=== PATIENT | female | born 1980 | race African-American/Black ===

== ENCOUNTER 2016-10-28 16:41 | Emergency (ER) | payer OTHER ==
[~2016-10-28] VITALS: Ht 154.9 cm; Wt 71.2 kg
[~2016-10-28 16:41] MED LIST: ALBUTEROL0.09 MG/A1 IH; AMBIEN10 M1 PO; BENADRYL25 MG PO; CLARITIN10 MG PO; FENTANYL; FLONASE NASAL50 MCG NS; FLOVENT HF110 MCG/AC IH; IMITREX100 MG PO; MIDRIN; NORVASC10 MG PO; QVAR HFA M40 MCG/ACT INH; SOMA350 M1 PO; TOPAMAX25 MG PO; XANAX0.25 M1 PO; XANAX0.5 MG PO; XANAX2 MG PO; [UNRECOGNIZED DRUG - OTHER] IH
--- NOTE | 2016-10-28 16:41 | NUR ---
Patient was BIBA at this time.
[2016-10-28 16:43] VITALS: BP 122/78
--- NOTE | 2016-10-28 18:52 | NUR ---
PATIENT LEFT WITHOUT BEING SEEN BY DR. TEJEDA. NO FURTHER CARE PROVIDED FOR PATIENT.
== END 2016-10-28 18:52 | disposition left against medical advice (07) ==
LOC: MED 16:41
DX: R10.11 Right upper quadrant pain (principal); Z53.21 Procedure and treatment not carried out due to patient leaving prior to being seen by health care provider

== ENCOUNTER 2017-10-21 02:40 | Emergency (ER) | payer OTHER ==
[~2017-10-21] VITALS: Ht 154.9 cm; Wt 76.3 kg
[~2017-10-21 02:40] MED LIST changes: +ALBU0.0939 IH; -ALBUTEROL0.09 MG/A1 IH; +ALPR2TAB1 PO; -AMBIEN10 M1 PO; -BENADRYL25 MG PO; -CLARITIN10 MG PO; -FENTANYL; +FLO110 IH; +FLONAS NS; -FLONASE NASAL50 MCG NS; -FLOVENT HF110 MCG/AC IH; -IMITREX100 MG PO; +LORA10TA19 PO; -MIDRIN; -NORVASC10 MG PO; -QVAR HFA M40 MCG/ACT INH; -SOMA350 M1 PO; -TOPAMAX25 MG PO; -XANAX0.25 M1 PO; -XANAX0.5 MG PO; -XANAX2 MG PO; -[UNRECOGNIZED DRUG - OTHER] IH
[2017-10-21 02:46] VITALS: BP 143/104
[2017-10-21] MEDS ORDERED: ONDANSETRON 4 MG/2 ML VIAL IVP ONE (02:55)
[2017-10-21] MEDS ORDERED: NACL 0.9% 1,000 ML IV SCH (02:55)
[2017-10-21] MEDS ORDERED: diphenhydrAMINE 50 MG/ML VIAL IVP ONE (02:55)
--- NOTE | 2017-10-21 02:55 | NUR ---
PATIENT AMBULATED TO BED 1
--- NOTE | 2017-10-21 02:56 | NUR ---
PATIENT PRESENTS TO ED WITH RIGHT FLANK PAIN X1 DAY. PT DENIES N/V/D; SKIN IS PINK/WARM/DRY; AAOX4 WITH EVEN AND STEADY GAIT; LUNGS CLEAR BL; HR EVEN AND REGULAR; PT DENIES ANY FEVER, CP, SOB, OR COUGH AT THIS TIME; PATIENT STATES PAIN OF 10/10 AT THIS TIME; VSS; PATIENT POSITIONED FOR COMFORT; HOB ELEVATED; BEDRAILS UP X2; BED DOWN. ER MD MADE AWARE OF PT STATUS.
--- NOTE | 2017-10-21 03:00 | NUR ---
DR PERKINS EVALUATING PATIENT
--- NOTE | 2017-10-21 03:10 | NUR ---
DR. PERKINS DISCONTINUED MEDICATIONS. DR IN TO SEE PATIENT
[2017-10-21 03:22] LABS: BASOPHILS # (AUTO) 0.1 K/uL (0.00-0.22); EOSINOPHILS # (AUTO) 0.1 K/uL (0-0.4); EOSINOPHILS % (AUTO) 1.6 % (0.0-4.0); HEMATOCRIT 29.5 % (36-48); HEMOGLOBIN 9.4 g/dL (12.0-16.0); LYMPHOCYTES # (AUTO) 2.5 K/uL (2.5-16.5); MEAN CORPUSCULAR HEMOGLOBIN 22 pg (27-31); MEAN CORPUSCULAR HGB CONC 32 g/dL (33-37); MEAN CORPUSCULAR VOLUME 68.9 fL (80-94); MONOCYTES # (AUTO) 0.5 K/uL (0.8-1.0); NEUTROPHILS # (AUTO) 3.3 K/uL (1.8-7.7); NEUTROPHILS % (AUTO) 50.4 % (42.2-75.2); PLATELET COUNT (AUTO) 348 K/uL (140-450); RED BLOOD CELL COUNT(AUTO) 4.28 MIL/uL (4.20-5.40); RED CELL DISTRIBUTION WIDTH 22.5 % (11.6-13.7); WHITE BLOOD COUNT (AUTO) 6.4 K/uL (4.8-10.8)
[2017-10-21 03:24] LABS: APPEARANCE,URINE SL CLOUDY (CLEAR); BILIRUBIN,URINE NEGATIVE (NEGATIVE); BLOOD, URINE 3+ (NEGATIVE); COLOR,URINE YELLOW (YELLOW); LEUKOCYTE ESTERASE ,URINE TRACE (NEGATIVE); NITRITE, URINE NEGATIVE (NEGATIVE); UGLUCOSE NEGATIVE (NEGATIVE)
[2017-10-21 03:29] LABS: BARBITURATE, URINE NEG. ng/ml (NEG <=200); BENZODIAZEPINE, URINE POS. ng/mL (NEG <=200); CANNABINOID, URINE NEG. ng/mL (NEG <=50); COCAINE, URINE NEG. ng/mL (NEG <=300); OPIATE, URINE NEG. ng/mL (NEG <=2000); PHENCYCLIDINE SCREEN,URINE NEG. ng/mL (NEG <=25)
[2017-10-21 03:30] VITALS: BP 143/104
--- NOTE | 2017-10-21 03:30 | NUR ---
PATIENT REFUSED TO SIGN DISCHARGE INSTUCTIONS, LEFT WITHOUT INSTRUCTIONS
[2017-10-21 03:35] LABS: ANION GAP 13.3 (8-16); CARBON DIOXIDE 25.8 mmol/L (21-32); CREATININE 0.7 mg/dL (0.6-1.3); POTASSIUM 3.1 mmol/L (3.5-5.1)
[2017-10-21 03:40] LABS: ALBUMIN 3.6 g/dL (3.4-5.0); TOTAL BILIRUBIN 0.2 mg/dL (0.0-1.0)
[2017-10-21 03:49] LABS: RBC,URINE 0-5 (RARE) /HPF (0-5); WBC,URINE 0-5 (RARE) /HPF (0-5)
== END 2017-10-21 03:30 | disposition home or self-care (01) ==
LOC: MED 02:40
DX: F11.20 Opioid dependence, uncomplicated (principal); J45.909 Unspecified asthma, uncomplicated; I10 Essential (primary) hypertension; R51 Headache; Z79.899 Other long term (current) drug therapy; Z88.5 Allergy status to narcotic agent; Z88.8 Allergy status to other drugs, medicaments and biological substances; Z90.710 Acquired absence of both cervix and uterus; Z87.442 Personal history of urinary calculi
CPT/HCPCS: 36415; 80053; 80305; 81001; 81025; 83690; 85025; 99284

== ENCOUNTER 2017-12-09 01:14 | Emergency (ER) | payer OTHER ==
[~2017-12-09] VITALS: Ht 154.9 cm; Wt 73.9 kg
[2017-12-09 01:16] VITALS: BP 127/85
--- NOTE | 2017-12-09 01:19 | NUR ---
TO LOBBY, A/W BED, OLIVIA, CAITLYN. ERMNiki NOTED
[2017-12-09 01:21] VITALS: BP 127/85
--- NOTE | 2017-12-09 02:14 | NUR ---
PT AMBULATED TO ER BED 2
[2017-12-09] MEDS ORDERED: LORazepam 2 MG/ML VIAL IM STA (02:26)
--- NOTE | 2017-12-09 02:30 | NUR ---
PT REFUSED ATIVAN AND TYLENOL. RATIONAL EXPLAINED TO RESON FOR MEDICATIONS AND DIAGNOSTIC TESTING. PT CONTINUED TO REFUSE.
[2017-12-09] MEDS ORDERED: ACETAMINOPHEN 325 MG TAB PO ONE (02:35)
--- NOTE | 2017-12-09 02:35 | NUR ---
PT REFUSED CT SCANNING UNTIL OTHER MEDICATIONS WERE OFFERED. DR PERKINS NOTIFIED OF MEDICATION AND DIAGNOSTIC REFUSAL.
--- NOTE | 2017-12-09 02:50 | NUR ---
DR PERKINS AT BEDSIDE WITH PT. PT CONTINUES TO REFUSE ALL CARE OFFERED.
--- NOTE | 2017-12-09 03:00 | NUR ---
PT LEFT WITHOUT RECIEVING OR SIGNING DISCHARGE PAPERWORK. VSS. DR PERKINS NOTIFIED.
[2017-12-09 03:08] LABS: APPEARANCE,URINE SL CLOUDY (CLEAR); BILIRUBIN,URINE NEGATIVE (NEGATIVE); BLOOD, URINE 3+ (NEGATIVE); COLOR,URINE YELLOW (YELLOW); LEUKOCYTE ESTERASE ,URINE 1+ (NEGATIVE); NITRITE, URINE NEGATIVE (NEGATIVE); PH,URINE 6.5 (5.0-9.0); UGLUCOSE NEGATIVE (NEGATIVE)
[2017-12-09 03:14] LABS: BARBITURATE, URINE NEG. ng/ml (NEG <=200); BENZODIAZEPINE, URINE POS. ng/mL (NEG <=200); CANNABINOID, URINE NEG. ng/mL (NEG <=50); COCAINE, URINE NEG. ng/mL (NEG <=300); OPIATE, URINE NEG. ng/mL (NEG <=2000); PHENCYCLIDINE SCREEN,URINE NEG. ng/mL (NEG <=25)
[2017-12-09 03:35] LABS: RBC,URINE TOO NUMEROUS TO COUN /HPF (0-5)
== END 2017-12-09 03:00 | disposition left against medical advice (07) ==
LOC: MED 01:14
DX: R10.9 Unspecified abdominal pain (principal); J45.909 Unspecified asthma, uncomplicated; F41.9 Anxiety disorder, unspecified; I10 Essential (primary) hypertension; Z79.899 Other long term (current) drug therapy; Z88.5 Allergy status to narcotic agent; Z88.8 Allergy status to other drugs, medicaments and biological substances; Z90.89 Acquired absence of other organs
CPT/HCPCS: 80305; 81001; 87086; 93005; 99285; J2060

== ENCOUNTER 2019-01-24 05:52 | Emergency (ER) | payer OTHER ==
[~2019-01-24] VITALS: Ht 154.9 cm; Wt 74.8 kg
[2019-01-24 06:04] VITALS: BP 144/94
--- NOTE | 2019-01-24 06:04 | NUR ---
PT TAKEN TO BED 4
--- NOTE | 2019-01-24 06:05 | NUR ---
38 Y/O F PRESENTED TO ED WITH C/O ABDOMINAL PAIN X 2 DAYS. WORSENING TODAY. 10 PAIN, SHARP. PER PT "I HAVE HAD KIDNEY STONES FOR A YEAR." PT SEEN IN ER X1 WEEK AND PRESCRIBED NORCO AND PER PT "RAN OUT OF IT THIS MORNING". PAIN LOCATED ON R FLANK RADIATING TO L LOWER ABDOMEN. FLANK TENDERNESS TO R FLANK. +HEMATURIA AND NAUSEA. PT PLACED IN GOWN. ERMD NOTIFIED. WILL CONTINUE TO MONITOR.
[2019-01-24 07:01] LABS: APPEARANCE,URINE CLOUDY (CLEAR); BILIRUBIN,URINE NEGATIVE (NEGATIVE); BLOOD, URINE 3+ (NEGATIVE); COLOR,URINE YELLOW (YELLOW); LEUKOCYTE ESTERASE ,URINE 2+ (NEGATIVE); NITRITE, URINE NEGATIVE (NEGATIVE); PH,URINE 6.5 (5.0-9.0); UGLUCOSE NEGATIVE (NEGATIVE)
--- NOTE | 2019-01-24 07:15 | NUR ---
REPORT GIVEN TO RUTHIE DELA CRUZ. TRANSFER OF CARE AT THIS TIME.
[2019-01-24] MEDS ORDERED: NALBUPHINE 10 MG/ML AMP IM SCH (07:30)
[2019-01-24] MEDS ORDERED: PROMETHAZINE 25 MG/ML VIAL IM ONE (07:30)
[2019-01-24 07:52] LABS: RBC,URINE TOO NUMEROUS TO COUN /HPF (0-5)
[2019-01-24 07:57] LABS: BARBITURATE, URINE NEG. ng/ml (NEG <=200); BENZODIAZEPINE, URINE POS. ng/mL (NEG <=200); CANNABINOID, URINE NEG. ng/mL (NEG <=50); COCAINE, URINE NEG. ng/mL (NEG <=300); OPIATE, URINE POS. ng/mL (NEG <=2000); PHENCYCLIDINE SCREEN,URINE NEG. ng/mL (NEG <=25)
[2019-01-24 08:16] VITALS: BP 118/82
--- NOTE | 2019-01-24 08:17 | NUR ---
Patient discharged with v/s stable. Written and verbal after care instructions given and explained. Patient verbalized understanding. Ambulatory with steady gait. All questions addressed prior to discharge. Advised to follow up with PMD.
== END 2019-01-24 08:15 | disposition home or self-care (01) ==
LOC: MED 05:52
DX: N23 Unspecified renal colic (principal); I10 Essential (primary) hypertension; J45.909 Unspecified asthma, uncomplicated; Z88.5 Allergy status to narcotic agent; Z88.6 Allergy status to analgesic agent; Z79.899 Other long term (current) drug therapy; Z79.891 Long term (current) use of opiate analgesic; Z87.448 Personal history of other diseases of urinary system; Z90.89 Acquired absence of other organs; Z90.49 Acquired absence of other specified parts of digestive tract; Z90.710 Acquired absence of both cervix and uterus
CPT/HCPCS: 80305; 81001; 81025; 87086; 96372; 99283; J2300; J2550

== ENCOUNTER 2019-02-05 23:08 | Emergency (ER) | payer OTHER ==
[~2019-02-05] VITALS: Ht 160 cm; Wt 77.1 kg
[2019-02-05 23:08] VITALS: BP 146/98
--- NOTE | 2019-02-05 23:16 | NUR ---
BIBA TO ER BED 2 Addendum: 02/05/19 at 2320 by MEDDM TO ER BED 1
--- NOTE | 2019-02-05 23:20 | NUR ---
BIBA FOR LEFT FLANK PAIN. PT RATES PAIN 10/10. PT RECEIVED BREATHING TX IN THE FIELD AND 50MCG OF FENTANYL. PT ON ROOM AIR AT THIS TIME, NO S/S OF DISTRESS/ SOB AT THIS TIME. PATIENT PLACED ON MONITOR. VITAL SIGNS WITHIN NORMAL LIMITS. BED LOWERED WITH SIDE RAILS UP. HX: KIDNEY STONES, ASTHMA, APPY, YENNY
[2019-02-05 23:52] VITALS: BP 147/94
[2019-02-06 00:02] LABS: APPEARANCE,URINE CLOUDY (CLEAR); BILIRUBIN,URINE NEGATIVE (NEGATIVE); BLOOD, URINE 3+ (NEGATIVE); LEUKOCYTE ESTERASE ,URINE TRACE (NEGATIVE); NITRITE, URINE NEGATIVE (NEGATIVE); PH,URINE 6.5 (5.0-9.0); UGLUCOSE NEGATIVE (NEGATIVE)
[2019-02-06] MEDS ORDERED: HYDROcodone/APAP 5/325 MG 1 TAB TAB PO ONE (00:05)
--- NOTE | 2019-02-06 00:10 | NUR ---
PT TAKEN TO CT
--- NOTE | 2019-02-06 00:13 | NUR ---
PT IS REFUSING TO GO TO CT AND TO TAKE PAIN MEDICATION THAT WAS ORDERED FOR HER. ER MD MADE AWARE.
--- NOTE | 2019-02-06 00:17 | NUR ---
PATIENT ELOPED FROM FACILITY. DISCHARGE INSTRUCTIONS NOT GIVEN TO PATIENT. DR. NAYAK NOTIFIED.
[2019-02-06 00:19] LABS: COLOR,URINE SLIGHT BLOODY (YELLOW)
[2019-02-06 00:20] LABS: RBC,URINE TOO NUMEROUS TO COUN /HPF (0-5); WBC,URINE 0-5 /HPF (0-5)
== END 2019-02-06 00:17 | disposition left against medical advice (07) ==
LOC: MED 23:08
DX: R10.9 Unspecified abdominal pain (principal); R11.0 Nausea; R31.9 Hematuria, unspecified; J45.909 Unspecified asthma, uncomplicated; I10 Essential (primary) hypertension; F41.9 Anxiety disorder, unspecified; Z90.49 Acquired absence of other specified parts of digestive tract; Z87.442 Personal history of urinary calculi; Z79.899 Other long term (current) drug therapy; Z88.6 Allergy status to analgesic agent; Z88.5 Allergy status to narcotic agent; Z88.8 Allergy status to other drugs, medicaments and biological substances
CPT/HCPCS: 81001; 81025; 99283

== ENCOUNTER 2019-03-08 17:51 | Emergency (ER) | payer OTHER ==
[~2019-03-08] VITALS: Ht 154.9 cm; Wt 78.0 kg
[2019-03-08 18:16] VITALS: BP 136/93
--- NOTE | 2019-03-08 21:25 | NUR ---
PT TAKEN TO BED 04 BY WHEELCHAIR.
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
[2019-03-08] MEDS ORDERED: ONDANSETRON 4 MG ODT PO ONE (22:05)
[2019-03-08] MEDS ORDERED: MORPHINE SULFATE 4 MG/ML SYR IM ONE (22:05)
--- NOTE | 2019-03-08 23:10 | NUR ---
PT SPLINT RE-WRAPPED WITH NEW CARMELLA WRAPS PER PT REQUEST. +CSM
[2019-03-08 23:25] VITALS: BP 128/86
--- NOTE | 2019-03-08 23:25 | NUR ---
Patient discharged with v/s stable. Written and verbal after care instructions given and explained. Patient alert, oriented and verbalized understanding of instructions. Ambulatory with steady gait. All questions addressed prior to discharge. ID band removed. Patient advised to follow up with PMD. Rx of ZOFRAN 8MG, FLOMAX 0.4 MG, NORCO 5/325 MG given. Patient educated on indication of medication including possible reaction and side effects. Opportunity to ask questions provided and answered.
== END 2019-03-08 23:25 | disposition home or self-care (01) ==
LOC: MED 17:51
DX: S93.401A Sprain of unspecified ligament of right ankle, initial encounter (principal); R10.31 Right lower quadrant pain; R11.0 Nausea; I10 Essential (primary) hypertension; J45.909 Unspecified asthma, uncomplicated; F41.9 Anxiety disorder, unspecified; Z90.49 Acquired absence of other specified parts of digestive tract; Z98.890 Other specified postprocedural states; Z90.710 Acquired absence of both cervix and uterus; Z79.899 Other long term (current) drug therapy; Z88.6 Allergy status to analgesic agent; Z88.5 Allergy status to narcotic agent; Z88.8 Allergy status to other drugs, medicaments and biological substances; W19.XXXA Unspecified fall, initial encounter; Y93.89 Activity, other specified; Y92.89 Other specified places as the place of occurrence of the external cause; Y99.8 Other external cause status
CPT/HCPCS: 73610; 81002; 81025; 96372; 99283; J2270; Q0162

== ENCOUNTER 2019-03-31 23:03 | Emergency (ER) | payer OTHER ==
[~2019-03-31] VITALS: Ht 154.9 cm; Wt 73.5 kg
--- NOTE | 2019-03-31 23:04 | NUR ---
PT TRANSFERED FROM [facility] TO BED 7.
[2019-03-31 23:08] VITALS: BP 148/95
--- NOTE | 2019-03-31 23:16 | NUR ---
PT C/O RT ANKLE PAIN AND SWELLING S/P FALLING OFF CURB AND TWISTING ANKLE ON 03/04/19. PT STATES SHE HEARD A CRACK. PT CANNOT PUT PRESSURE ON RT ANKLE. HAS BEEN TAKING TYLENOL FOR PAIN SINCE FALL, NO RELIEF. TOOK TYLENOL AT 0800 TODAY. +CMS. 04/19 PAIN. PT IN BED CALM, GRIMICING IN PAIN. ALLERGIES: ASPIRIN, IBURPROFEN, REGLAN, COMPAZINE, TORADOL W/ CODEINE, PENICILLIN, DEMEROL MEDHX: ANXIETY, ASTHMA
--- NOTE | 2019-03-31 23:18 | NUR ---
XRAY AT BEDSIDE
--- NOTE | 2019-03-31 23:23 | NUR ---
Dr. Sullivan examining patient.
[2019-03-31] MEDS ORDERED: traMADol 50 MG TAB PO ONE (23:30)
--- NOTE | 2019-03-31 23:33 | NUR ---
PT REFUSED TRAMADOL. STATES SHE IS ALLERGIC AND HER THROAT WILL SWELL. DR ALLEN MADE AWARE
--- NOTE | 2019-04-01 00:09 | NUR ---
Dr. Sullivan with patient.
--- NOTE | 2019-04-01 00:14 | NUR ---
PT REFUSED TO TAKE D/C PAPERWORK AND REFUSES TO SIGN , PT AMBULATORY W/ HER OWN WALKING BOOT TO JEREMIE KERN. PT REFUSES BUS PASS.
== END 2019-04-01 00:14 | disposition home or self-care (01) ==
LOC: MED 23:03
DX: S93.401A Sprain of unspecified ligament of right ankle, initial encounter (principal); J45.909 Unspecified asthma, uncomplicated; I10 Essential (primary) hypertension; F41.9 Anxiety disorder, unspecified; Z90.49 Acquired absence of other specified parts of digestive tract; Z90.710 Acquired absence of both cervix and uterus; Z79.899 Other long term (current) drug therapy; Z79.51 Long term (current) use of inhaled steroids; Z88.6 Allergy status to analgesic agent; Z88.5 Allergy status to narcotic agent; Z88.8 Allergy status to other drugs, medicaments and biological substances; X50.1XXA Overexertion from prolonged static or awkward postures, initial encounter; Y93.89 Activity, other specified; Y92.89 Other specified places as the place of occurrence of the external cause; Y99.8 Other external cause status
CPT/HCPCS: 73610; 99283; Q0092

== ENCOUNTER 2019-04-25 18:24 | Emergency (ER) | payer OTHER ==
[~2019-04-25] VITALS: Ht 154.9 cm; Wt 77.1 kg
[2019-04-25 19:00] VITALS: BP 132/94
[2019-04-25] MEDS ORDERED: MORPHINE SULFATE 4 MG/ML SYR IVP ONE (19:25)
[2019-04-25] MEDS ORDERED: NACL 0.9% 1,000 ML IV ONE (19:25)
[2019-04-25] MEDS ORDERED: ONDANSETRON 4 MG/2 ML VIAL IVP ONE (19:25)
[2019-04-25 19:55] LABS: BASOPHILS # (AUTO) 0.2 K/uL (0.00-0.22); BASOPHILS % (AUTO) 2.6 % (0.0-2.0); EOSINOPHILS # (AUTO) 0.4 K/uL (0-0.4); EOSINOPHILS % (AUTO) 5.7 % (0.0-4.0); HEMATOCRIT 31.7 % (36-48); LYMPHOCYTES % (AUTO) 30.4 % (20.5-51.1); MEAN CORPUSCULAR HEMOGLOBIN 25 pg (27-31); MEAN CORPUSCULAR HGB CONC 32 g/dL (33-37); MEAN CORPUSCULAR VOLUME 77.8 fL (80-94); MONOCYTES # (AUTO) 0.7 K/uL (0.8-1.0); MONOCYTES % (AUTO) 10.8 % (1.7-9.3); NEUTROPHILS # (AUTO) 3.3 K/uL (1.8-7.7); NEUTROPHILS % (AUTO) 50.5 % (42.2-75.2); PLATELET COUNT (AUTO) 356 K/uL (140-450); RED BLOOD CELL COUNT(AUTO) 4.07 MIL/uL (4.20-5.40); RED CELL DISTRIBUTION WIDTH 20.7 % (11.6-13.7); WHITE BLOOD COUNT (AUTO) 6.6 K/uL (4.8-10.8)
[2019-04-25 20:27] LABS: ANION GAP 12.8 (8-16); CARBON DIOXIDE 26.4 mmol/L (21-32); CREATININE 0.7 mg/dL (0.6-1.3); POTASSIUM 3.2 mmol/L (3.5-5.1)
[2019-04-25 20:32] LABS: APPEARANCE,URINE HAZY (CLEAR); BILIRUBIN,URINE NEGATIVE (NEGATIVE); BLOOD, URINE 3+ (NEGATIVE); COLOR,URINE YELLOW (YELLOW); LEUKOCYTE ESTERASE ,URINE TRACE (NEGATIVE); NITRITE, URINE NEGATIVE (NEGATIVE); UGLUCOSE NEGATIVE (NEGATIVE)
[2019-04-25 20:34] LABS: ALBUMIN 3.6 g/dL (3.4-5.0); TOTAL BILIRUBIN 0.2 mg/dL (0.0-1.0)
[2019-04-25] MEDS ORDERED: ONDANSETRON 4 MG ODT PO ONE (20:55)
[2019-04-25 20:56] LABS: RBC,URINE 0-5 /HPF (0-5)
[2019-04-25 20:57] LABS: WBC,URINE 0-5 /HPF (0-5)
[2019-04-25] MEDS ORDERED: MORPHINE SULFATE 4 MG/ML SYR IM ONE ×2 (21:50→23:10)
[2019-04-25] MEDS ORDERED: LORazepam 1 MG TAB PO ONE (23:10)
[2019-04-26 00:19] VITALS: BP 123/88
== END 2019-04-26 00:18 | disposition home or self-care (01) ==
LOC: MED 18:24
DX: N20.0 Calculus of kidney (principal); R31.9 Hematuria, unspecified; G89.29 Other chronic pain; J45.909 Unspecified asthma, uncomplicated; I10 Essential (primary) hypertension; Z79.899 Other long term (current) drug therapy; Z88.6 Allergy status to analgesic agent; Z88.5 Allergy status to narcotic agent; Z88.8 Allergy status to other drugs, medicaments and biological substances
CPT/HCPCS: 36415; 74176; 80053; 81001; 81025; 85025; 96372; 99284; J2270; Q0162; J2405

== ENCOUNTER 2019-05-31 16:18 | Emergency (ER) | payer OTHER ==
[~2019-05-31] VITALS: Ht 154.9 cm; Wt 79.8 kg
[2019-05-31 16:26] VITALS: BP 129/90
--- NOTE | 2019-05-31 16:45 | NUR ---
PT W/C ASSISTED TO BED 8.
--- NOTE | 2019-05-31 17:00 | NUR ---
C/O ABD PAIN 10/10 X3 DAYS ACCOMPANIED BY N/V. PT STATES SHE THINKS SHE HAS KIDNEY STONES AGAIN. HX: KIDNEY STONES, ASTHMA, PANIC ATTACKS RX: SKIN IS PINK/WARM/DRY; AAOX4 WITH EVEN AND STEADY GAIT; LUNGS CLEAR BL; HR EVEN AND REGULAR; PT DENIES ANY FEVER, CP, SOB, OR COUGH AT THIS TIME; PATIENT STATES PAIN OF 10/10 AT THIS TIME; VSS; PATIENT POSITIONED FOR COMFORT; HOB ELEVATED; BEDRAILS UP X2; BED DOWN. ER MD MADE AWARE OF PT STATUS.
[2019-05-31] MEDS ORDERED: MORPHINE SULFATE 4 MG/ML SYR IM ONE ×2 (17:05→18:20)
[2019-05-31] MEDS ORDERED: LORazepam 1 MG TAB PO ONE (17:05)
[2019-05-31] MEDS ORDERED: ONDANSETRON 4 MG ODT PO ONE (17:05)
[2019-05-31 17:23] LABS: BASOPHILS # (AUTO) 0.1 K/uL (0.00-0.22); BASOPHILS % (AUTO) 1.3 % (0.0-2.0); EOSINOPHILS # (AUTO) 0.5 K/uL (0-0.4); HEMATOCRIT 33.6 % (36-48); HEMOGLOBIN 10.8 g/dL (12.0-16.0); LYMPHOCYTES # (AUTO) 1.6 K/uL (2.5-16.5); LYMPHOCYTES % (AUTO) 31.2 % (20.5-51.1); MEAN CORPUSCULAR HEMOGLOBIN 25 pg (27-31); MEAN CORPUSCULAR HGB CONC 32 g/dL (33-37); MEAN CORPUSCULAR VOLUME 78.1 fL (80-94); MONOCYTES # (AUTO) 0.5 K/uL (0.8-1.0); MONOCYTES % (AUTO) 8.7 % (1.7-9.3); NEUTROPHILS # (AUTO) 2.6 K/uL (1.8-7.7); NEUTROPHILS % (AUTO) 48.8 % (42.2-75.2); PLATELET COUNT (AUTO) 325 K/uL (140-450); WHITE BLOOD COUNT (AUTO) 5.3 K/uL (4.8-10.8)
--- NOTE | 2019-05-31 17:30 | NUR ---
NO IV NEEDED PER
[2019-05-31 17:44] LABS: ANION GAP 12.1 (8-16); CARBON DIOXIDE 27.2 mmol/L (21-32); CREATININE 0.7 mg/dL (0.6-1.3); POTASSIUM 3.3 mmol/L (3.5-5.1)
[2019-05-31 17:49] LABS: ALBUMIN 3.6 g/dL (3.4-5.0); TOTAL BILIRUBIN 0.2 mg/dL (0.0-1.0)
--- NOTE | 2019-05-31 18:00 | NUR ---
NOTIFIED DR. JARVIS PT C/O PAIN.
--- NOTE | 2019-05-31 18:30 | NUR ---
PT STATES "I DON'T WANT TO SEE THAT DOCTOR AGAIN. HE IS GIVING ME THE SAME MEDICATION THAT IS NOT WORKING." PT REQUESTING TO SPEAK TO DR. JARVIS. DR. JARVIS AT BEDSIDE SPEAKING WITH PATIENT.
--- NOTE | 2019-05-31 18:43 | NUR ---
DR. JARVIS AT BEDSIDE TO RE-ASSESS PT. DISCHARGE PAPER OFFERED TO PT, PT STATED SHE WILL NOT SIGN D/C PAPER DUE TO DRMaximilian DID NOT DO ANYTHING.
--- NOTE | 2019-05-31 18:52 | NUR ---
Pt ambulated out of facility with steady gait. Pt refused to sign discharge instructions. Pt refused to have US or provide UA.
== END 2019-05-31 18:52 | disposition home or self-care (01) ==
LOC: MED 16:18
DX: M54.9 Dorsalgia, unspecified (principal); G89.29 Other chronic pain; J45.909 Unspecified asthma, uncomplicated; I10 Essential (primary) hypertension; Z79.899 Other long term (current) drug therapy; Z79.51 Long term (current) use of inhaled steroids; Z88.6 Allergy status to analgesic agent; Z88.5 Allergy status to narcotic agent; Z88.8 Allergy status to other drugs, medicaments and biological substances
CPT/HCPCS: 36415; 80053; 81002; 81025; 83690; 85025; 96372; 99283; J2270; Q0162

== ENCOUNTER 2019-06-24 15:25 | Emergency (ER) | payer OTHER ==
[~2019-06-24] VITALS: Ht 154.9 cm; Wt 78.0 kg
[2019-06-24 15:35] VITALS: BP 146/66
--- NOTE | 2019-06-24 15:36 | NUR ---
TO LOBBY A/W BED AMBULATORY
--- NOTE | 2019-06-24 16:14 | NUR ---
PT AMB TO RESTROOM WITH STEADY GAIT
--- NOTE | 2019-06-24 16:15 | NUR ---
PT WENT TO RESTROOM AMBULATING FOR URINE COLLECTION.
[2019-06-24 16:36] LABS: APPEARANCE,URINE SL CLOUDY (CLEAR); BILIRUBIN,URINE NEGATIVE (NEGATIVE); BLOOD, URINE 3+ (NEGATIVE); COLOR,URINE YELLOW (YELLOW); LEUKOCYTE ESTERASE ,URINE 1+ (NEGATIVE); NITRITE, URINE NEGATIVE (NEGATIVE); UGLUCOSE NEGATIVE (NEGATIVE)
--- NOTE | 2019-06-24 16:37 | NUR ---
PT MOVED TO BED 8
[2019-06-24 16:45] LABS: RBC,URINE >20 (MANY) /HPF (0-5)
[2019-06-24 16:55] LABS: BARBITURATE, URINE NEG. ng/ml (NEG <=200); BENZODIAZEPINE, URINE POS. ng/mL (NEG <=200); CANNABINOID, URINE NEG. ng/mL (NEG <=50); COCAINE, URINE NEG. ng/mL (NEG <=300); OPIATE, URINE NEG. ng/mL (NEG <=2000); PHENCYCLIDINE SCREEN,URINE NEG. ng/mL (NEG <=25)
[2019-06-24] MEDS ORDERED: HYDROcodone/APAP 5/325 MG 1 TAB TAB PO ONE (17:25)
[2019-06-24] MEDS ORDERED: cefTRIAXone 1,000 MG VIAL ONE (17:34)
[2019-06-24] MEDS ORDERED: DEXTROSE 5% 0 ML IV ONE (17:34)
--- NOTE | 2019-06-24 17:41 | NUR ---
PT REFUSING MEDS AT THIS TIME.
--- NOTE | 2019-06-24 17:49 | NUR ---
SPOKE WITH PT, INFORMED PT OF PLAN OF CARE. PT STATES "I WANT SOMETHING STRONGER THAN NORCO AND I DONT WANT TO BE POKED FOR NO ANTIBIOTIC" EDUCATED PATIENT THAT NORLALY AND ANTIBIOTICS WERE DR WOLF PLAN OF CARE. PT REFUSING ALL MEDICATIONS, LAB DRAWS, AND IV INSERTION DESPITE EDUCATION.
[2019-06-24 17:51] VITALS: BP 146/66
--- NOTE | 2019-06-24 17:51 | NUR ---
Patient does not wish to proceed with medical care recommended by DR SEGUNOD. Patient given information related to possible complications, up to and including , which could occur as a result of leaving hospital at this time. Patient verbalizes understanding of risks involved leaving against medical advice. Patient has signed AMA form.
== END 2019-06-24 17:51 | disposition left against medical advice (07) ==
LOC: MED 15:25
DX: Z53.21 Procedure and treatment not carried out due to patient leaving prior to being seen by health care provider (principal); M54.9 Dorsalgia, unspecified; R10.9 Unspecified abdominal pain
CPT/HCPCS: 80305; 81001; 87086; 99283; J0696; J7060

== ENCOUNTER 2019-07-25 12:31 | Emergency (ER) | payer OTHER ==
[~2019-07-25] VITALS: Ht 154.9 cm; Wt 73.9 kg
[2019-07-25 12:38] VITALS: BP 131/86
[2019-07-25] MEDS: HYDROmorphone PFS 2 MG/ML SYR IM ONE ×2 (13:37→14:35)
[2019-07-25] MEDS: ONDANSETRON 4 MG/2 ML VIAL IM ONE (13:41)
[2019-07-25 14:39] LABS: BASOPHILS # (AUTO) 0.1 K/uL (0.00-0.22); BASOPHILS % (AUTO) 1.5 % (0.0-2.0); EOSINOPHILS # (AUTO) 0.3 K/uL (0-0.4); HEMATOCRIT 32.9 % (36-48); HEMOGLOBIN 10.4 g/dL (12.0-16.0); LYMPHOCYTES # (AUTO) 1.8 K/uL (2.5-16.5); MEAN CORPUSCULAR HEMOGLOBIN 25 pg (27-31); MEAN CORPUSCULAR HGB CONC 32 g/dL (33-37); MEAN CORPUSCULAR VOLUME 78.1 fL (80-94); MONOCYTES # (AUTO) 0.8 K/uL (0.8-1.0); MONOCYTES % (AUTO) 11.4 % (1.7-9.3); NEUTROPHILS # (AUTO) 3.8 K/uL (1.8-7.7); NEUTROPHILS % (AUTO) 56.1 % (42.2-75.2); PLATELET COUNT (AUTO) 366 K/uL (140-450); RED BLOOD CELL COUNT(AUTO) 4.21 MIL/uL (4.20-5.40); RED CELL DISTRIBUTION WIDTH 19.7 % (11.6-13.7); WHITE BLOOD COUNT (AUTO) 6.8 K/uL (4.8-10.8)
[2019-07-25 14:58] LABS: ANION GAP 13.4 (8-16); CREATININE 0.7 mg/dL (0.6-1.3); POTASSIUM 3.4 mmol/L (3.5-5.1)
[2019-07-25 15:02] LABS: ALBUMIN 3.1 g/dL (3.4-5.0); TOTAL BILIRUBIN 0.1 mg/dL (0.0-1.0)
[2019-07-25 15:19] VITALS: BP 106/63
[2019-07-25 16:08] LABS: APPEARANCE,URINE CLEAR (CLEAR); BILIRUBIN,URINE NEGATIVE (NEGATIVE); BLOOD, URINE 3+ (NEGATIVE); COLOR,URINE YELLOW (YELLOW); LEUKOCYTE ESTERASE ,URINE 1+ (NEGATIVE); NITRITE, URINE NEGATIVE (NEGATIVE); PH,URINE 6.5 (5.0-9.0); UGLUCOSE NEGATIVE (NEGATIVE)
[2019-07-25 16:11] LABS: RBC,URINE 11-20 (MOD) /HPF (0-5)
== END 2019-07-25 15:19 | disposition home or self-care (01) ==
LOC: MED 12:31
DX: R10.9 Unspecified abdominal pain (principal); R05 Cough; J45.909 Unspecified asthma, uncomplicated; I10 Essential (primary) hypertension; Z79.899 Other long term (current) drug therapy; Z87.442 Personal history of urinary calculi; Z88.5 Allergy status to narcotic agent; Z88.6 Allergy status to analgesic agent; Z88.8 Allergy status to other drugs, medicaments and biological substances
CPT/HCPCS: 36415; 80053; 81001; 82150; 83690; 84703; 85025; 87086; 96372; 99283; J1170; J2405

== ENCOUNTER 2019-07-25 18:22 | Emergency (ER) | payer OTHER ==
[~2019-07-25] VITALS: Ht 162.6 cm; Wt 68.0 kg
[2019-07-25 18:25] VITALS: BP 143/87
--- NOTE | 2019-07-25 20:10 | NUR ---
ASSESSMENT COMPLETE. PATIENT SITTING UP IN CHAIR. BIB SELF WITH REPORTS OF BEING DGX WITH KIDNEY STONES HERE EARLIER TODAY. STATES SHE IS STILL HAS BILATERAL LOWER BACK PAIN. WHEN ASKED WHY SHE IS HERE TODAY SHE STATES "SHE IS JUST WAITING FOR HER RIDE". DENIES NVD, SOB, FEVER. PATIENT LUNGS CLEAR, ABD SOFT AND NON-TENDER.
--- NOTE | 2019-07-25 20:10 | NUR ---
PT AMBULATED TO [facility].
[2019-07-25 20:19] LABS: BARBITURATE, URINE NEG. ng/ml (NEG <=200); BENZODIAZEPINE, URINE POS. ng/mL (NEG <=200); CANNABINOID, URINE NEG. ng/mL (NEG <=50); COCAINE, URINE NEG. ng/mL (NEG <=300); OPIATE, URINE POS. ng/mL (NEG <=2000); PHENCYCLIDINE SCREEN,URINE NEG. ng/mL (NEG <=25)
[2019-07-25 20:44] VITALS: BP 110/95
== END 2019-07-25 20:45 | disposition home or self-care (01) ==
LOC: MED 18:22
DX: R10.9 Unspecified abdominal pain (principal); J45.909 Unspecified asthma, uncomplicated; I10 Essential (primary) hypertension; Z79.899 Other long term (current) drug therapy; Z88.6 Allergy status to analgesic agent; Z88.5 Allergy status to narcotic agent; Z88.8 Allergy status to other drugs, medicaments and biological substances
CPT/HCPCS: 80305; 99283

== ENCOUNTER 2019-07-29 23:08 | Emergency (ER) | payer OTHER ==
[~2019-07-29] VITALS: Ht 154.9 cm; Wt 74.4 kg
[2019-07-29 23:15] VITALS: BP 139/93
--- NOTE | 2019-07-29 23:18 | NUR ---
TO LOBBY A/W BED AMBULATORY
--- NOTE | 2019-07-30 00:22 | NUR ---
39 YEAR OLD FEMALE COMPLAINS OF BILATERAL FLANK PAIN 9/10 PAIN X 3 DAYS. PATIENT DENIES N/V/D. PATIENT STATES THAT SOMETIMES SHE SEES SOME BLOOD SPOTS IN URINE. PATIENT AOX4, BREATHING EVEN AND UNLABORED, SKIN WARM AND DRY. BED IN LOWEST POSITION, LOCKED, BED RAIL UPX1. PMH - ASTHMA, APPENDECTOMY, REMOVE GALLBLADER, HYSTERECTOMY ALLERGIES - ASA, NSAIDS, TORADOL, REGLAN
[2019-07-30 00:27] LABS: APPEARANCE,URINE SL CLOUDY (CLEAR); BILIRUBIN,URINE NEGATIVE (NEGATIVE); BLOOD, URINE 3+ (NEGATIVE); COLOR,URINE YELLOW (YELLOW); LEUKOCYTE ESTERASE ,URINE 1+ (NEGATIVE); NITRITE, URINE NEGATIVE (NEGATIVE); UGLUCOSE NEGATIVE (NEGATIVE)
--- NOTE | 2019-07-30 00:33 | NUR ---
DR. SEGUNDO BEDSIDE EVALUATING PT
--- NOTE | 2019-07-30 00:49 | NUR ---
PT ELOPEDN 0048
--- NOTE | 2019-07-30 00:49 | NUR ---
PATIENT ELOPED FROM FACILITY. DISCHARGE INSTRUCTIONS NOT GIVEN TO PATIENT. DR. SEGUNDO NOTIFIED.
[2019-07-30 00:51] LABS: RBC,URINE TOO NUMEROUS TO COUN /HPF (0-5)
== END 2019-07-30 00:49 | disposition left against medical advice (07) ==
LOC: MED 23:08
DX: Z76.5 Malingerer [conscious simulation] (principal); R10.84 Generalized abdominal pain; J45.909 Unspecified asthma, uncomplicated; I10 Essential (primary) hypertension; Z90.710 Acquired absence of both cervix and uterus; Z88.6 Allergy status to analgesic agent; Z88.5 Allergy status to narcotic agent; Z88.8 Allergy status to other drugs, medicaments and biological substances
CPT/HCPCS: 81001; 87086; 99283

== ENCOUNTER 2019-09-07 20:15 | Emergency (ER) | payer OTHER ==
[~2019-09-07] VITALS: Ht 154.9 cm; Wt 80.0 kg
[2019-09-07 20:26] VITALS: BP 98/78
--- NOTE | 2019-09-07 21:17 | NUR ---
C/O SHARP LT FLANK PAIN X YESTERDAY. + HEMATURIA, + FREQUENCY, + NAUSEA. PT STATES "FEELS LIKE KIDNEY STONES". PAIN IS A 9/10 LOWER ABODMINAL FLANK PAIN TO THE LOWER BACK PAIN. PATIENT STATES "I'VE NOTICED BLOOD IN MY URINE AND IT HAS BEEN BURNING WHEN I PEE". SLIGHT TENDERNESS UPON PALPATION IN THE LOWER BACK. DENIES NAUSEA; VOMITING. ERMD MADE AWARE OF STATUS. SIDE RAILSX1. WILL CONTINUE TO MONITOR. PMH:KIDNEY STONES, HTN, CHRONIC SINISITUS, CHOLECYSTECTOMY, APPENDECTOMY, HYSTERECTOMY
--- NOTE | 2019-09-07 21:17 | NUR ---
PT AMBULATED TO BED 9
[2019-09-07] MEDS ORDERED: HYDROcodone/APAP 5/325 MG 1 TAB TAB PO ONE (23:40)
[2019-09-07 23:45] VITALS: BP 100/78
--- NOTE | 2019-09-07 23:45 | NUR ---
Patient discharged with v/s stable. Written and verbal after care instructions given and explained. Patient verbalized understanding. Ambulatory with steady gait. All questions addressed prior to discharge. Advised to follow up with PMD. pt left with signing paperwork, ermd made aware
--- NOTE | 2019-09-07 23:52 | NUR ---
Herminio mackenzie in ED - 09/08/19 at 0002 by [place] PATIENT ELOPED FROM FACILITY. DISCHARGE INSTRUCTIONS NOT GIVEN TO PATIENT. DR. JENKINS NOTIFIED.
== END 2019-09-07 23:45 | disposition home or self-care (01) ==
LOC: MED 20:15
DX: N20.0 Calculus of kidney (principal); J45.909 Unspecified asthma, uncomplicated; I10 Essential (primary) hypertension; Z79.899 Other long term (current) drug therapy; Z98.890 Other specified postprocedural states; Z90.49 Acquired absence of other specified parts of digestive tract; Z88.1 Allergy status to other antibiotic agents; Z88.5 Allergy status to narcotic agent; Z88.6 Allergy status to analgesic agent; Z88.8 Allergy status to other drugs, medicaments and biological substances
CPT/HCPCS: 81002; 81025; 99283

== ENCOUNTER 2019-09-28 09:20 | Emergency (ER) | payer OTHER ==
[~2019-09-28] VITALS: Ht 154.9 cm; Wt 80.3 kg
[2019-09-28 09:26] VITALS: BP 135/96
--- NOTE | 2019-09-28 09:30 | NUR ---
PT AMBULATED TO BED 07, GIVEN CUP FOR URINE COLLECTION.
--- NOTE | 2019-09-28 09:40 | NUR ---
PT C/O OF LEFT ABDOMINAL PAIN X 2 DAYS ACCOMPANIED BY FEELING OF NAUSEA ,SELF MEDICATED WITH TYLENOL AND NORCO WITH NO RELIEF, PAIN AT 9/10 PT AWAKE , ALERT, AFIBRILE , AMBULATORY WITH STEADY GAIT.FLAT SOFT NABS , NONTENDER. PMHX ASTMA , HTN , KIDNEY STONES. MEDS HTN MEDS AND INHALER.
--- NOTE | 2019-09-28 09:48 | NUR ---
Dr. Sullivan is evaluating the patient at bedside.
[2019-09-28] MEDS ORDERED: ONDANSETRON 4 MG/2 ML VIAL IVP ONE (09:50)
[2019-09-28] MEDS ORDERED: fentaNYL 0.05 MG/ML VIAL IVP ONE (09:50)
[2019-09-28] MEDS ORDERED: NACL 0.9% 500 ML IV ONE (09:50)
[2019-09-28] MEDS ORDERED: ONDANSETRON 4 MG ODT PO ONE (10:05)
[2019-09-28] MEDS ORDERED: fentaNYL 0.05 MG/ML VIAL IM ONE ×2 (10:05→11:05)
--- NOTE | 2019-09-28 10:08 | NUR ---
LABS AT BEDSIDE , ASK RN PEPE FOR CANNULATION AND DR ALLEN INFORMED PT IS HARD STICK.
[2019-09-28 10:23] LABS: APPEARANCE,URINE SL CLOUDY (CLEAR); BILIRUBIN,URINE NEGATIVE (NEGATIVE); BLOOD, URINE 3+ (NEGATIVE); COLOR,URINE YELLOW (YELLOW); LEUKOCYTE ESTERASE ,URINE TRACE (NEGATIVE); NITRITE, URINE NEGATIVE (NEGATIVE); PH,URINE 7.5 (5.0-9.0); UGLUCOSE NEGATIVE (NEGATIVE)
[2019-09-28 10:23] LABS: BASOPHILS # (AUTO) 0.1 K/uL (0.00-0.22); BASOPHILS % (AUTO) 1.2 % (0.0-2.0); EOSINOPHILS # (AUTO) 0.8 K/uL (0-0.4); EOSINOPHILS % (AUTO) 10.6 % (0.0-4.0); HEMATOCRIT 33.1 % (36-48); HEMOGLOBIN 10.6 g/dL (12.0-16.0); LYMPHOCYTES # (AUTO) 2.1 K/uL (2.5-16.5); LYMPHOCYTES % (AUTO) 28.4 % (20.5-51.1); MEAN CORPUSCULAR HEMOGLOBIN 25 pg (27-31); MEAN CORPUSCULAR HGB CONC 32 g/dL (33-37); MEAN CORPUSCULAR VOLUME 77.2 fL (80-94); MONOCYTES # (AUTO) 0.5 K/uL (0.8-1.0); MONOCYTES % (AUTO) 7.2 % (1.7-9.3); NEUTROPHILS # (AUTO) 3.9 K/uL (1.8-7.7); NEUTROPHILS % (AUTO) 52.6 % (42.2-75.2); PLATELET COUNT (AUTO) 377 K/uL (140-450); RED BLOOD CELL COUNT(AUTO) 4.29 MIL/uL (4.20-5.40); RED CELL DISTRIBUTION WIDTH 18.6 % (11.6-13.7); WHITE BLOOD COUNT (AUTO) 7.4 K/uL (4.8-10.8)
--- NOTE | 2019-09-28 10:26 | NUR ---
WASTED FENTANYL HALF DOSE WITH RN PEPE.
[2019-09-28 10:39] LABS: RBC,URINE >100 /HPF (0-5); WBC,URINE 16-25 (MOD) /HPF (0-5)
--- NOTE | 2019-09-28 10:39 | NUR ---
Patient taken to CT scan via gurney by [employer].
--- NOTE | 2019-09-28 10:40 | NUR ---
pt to ct csan via gurney.awake , alert , afibrile.
--- NOTE | 2019-09-28 10:48 | NUR ---
pt back from ct scan via [facility].
[2019-09-28 10:51] LABS: ALBUMIN 3.3 g/dL (3.4-5.0); ANION GAP 11.6 (8-16); CARBON DIOXIDE 28.8 mmol/L (21-32); CREATININE 0.8 mg/dL (0.6-1.3); POTASSIUM 3.4 mmol/L (3.5-5.1); TOTAL BILIRUBIN 0.1 mg/dL (0.0-1.0)
[2019-09-28] MEDS ORDERED: diphenhydrAMINE 50 MG/ML VIAL IM ONE (10:55)
--- NOTE | 2019-09-28 11:00 | NUR ---
INFORMED DR ALLEN REGARDING PATIENT CONCERN ABOUT PAIN MEDS SHE WANTS.
--- NOTE | 2019-09-28 11:22 | NUR ---
DR ALLEN AT BEDSIDE REEVALUATING PATIENT.
[2019-09-28] MEDS ORDERED: MORPHINE SULFATE 2 MG/ML SYR IM ONE (11:25)
--- NOTE | 2019-09-28 11:49 | NUR ---
DR ALLEN AT BEDSIDE REEVALUATING PT AND BOTH EARS EXAMINE. EXPLAIN TO PATIENT NO INFECTION IN BOTH EARS .
--- NOTE | 2019-09-28 11:54 | NUR ---
Patient discharged with v/s stable. Written and verbal after care instructions given and explained regarding kidney stones. Patient alert, oriented and verbalized understanding of instructions. Ambulatory with steady gait. All questions addressed prior to discharge. ID band removed. Patient advised to follow up with PMD. Rx of norco and zofran given. Patient educated on indication of medication including possible reaction and side effects. Opportunity to ask questions provided and answered.
[2019-09-28 11:58] VITALS: BP 135/90
== END 2019-09-28 11:54 | disposition home or self-care (01) ==
LOC: MED 09:20
DX: N20.0 Calculus of kidney (principal); J45.909 Unspecified asthma, uncomplicated; I10 Essential (primary) hypertension; Z90.49 Acquired absence of other specified parts of digestive tract; Z87.442 Personal history of urinary calculi; Z79.899 Other long term (current) drug therapy; Z88.6 Allergy status to analgesic agent; Z88.5 Allergy status to narcotic agent; Z88.8 Allergy status to other drugs, medicaments and biological substances
CPT/HCPCS: 36415; 74176; 80053; 81001; 81025; 85025; 96372; 99284; J1200; J2270; J3010; Q0162

== ENCOUNTER 2019-10-22 06:14 | Emergency (ER) | payer OTHER ==
[~2019-10-22] VITALS: Ht 154.9 cm; Wt 81.6 kg
[2019-10-22 06:19] VITALS: BP 115/84
[2019-10-22 06:56] LABS: APPEARANCE,URINE CLEAR (CLEAR); BILIRUBIN,URINE NEGATIVE (NEGATIVE); BLOOD, URINE 3+ (NEGATIVE); COLOR,URINE YELLOW (YELLOW); LEUKOCYTE ESTERASE ,URINE 1+ (NEGATIVE); NITRITE, URINE NEGATIVE (NEGATIVE); PH,URINE 6.5 (5.0-9.0); UGLUCOSE NEGATIVE (NEGATIVE)
[2019-10-22 07:05] LABS: BARBITURATE, URINE NEGATIVE ng/ml (NEG <=200); BENZODIAZEPINE, URINE POSITIVE ng/mL (NEG <=200); CANNABINOID, URINE NEGATIVE ng/mL (NEG <=50); COCAINE, URINE NEGATIVE ng/mL (NEG <=300); OPIATE, URINE POSITIVE ng/mL (NEG <=2000); PHENCYCLIDINE SCREEN,URINE NEGATIVE ng/mL (NEG <=25)
[2019-10-22 07:21] LABS: RBC,URINE 20-50 /HPF (0-5)
== END 2019-10-22 07:31 | disposition home or self-care (01) ==
LOC: MED 06:14
DX: N23 Unspecified renal colic (principal); J45.909 Unspecified asthma, uncomplicated; I10 Essential (primary) hypertension; G43.909 Migraine, unspecified, not intractable, without status migrainosus; Z87.442 Personal history of urinary calculi; Z90.49 Acquired absence of other specified parts of digestive tract; Z88.5 Allergy status to narcotic agent; Z88.6 Allergy status to analgesic agent; Z88.8 Allergy status to other drugs, medicaments and biological substances
CPT/HCPCS: 80305; 81001; 81025; 87086; 99283

== ENCOUNTER 2019-11-05 23:55 | Emergency (ER) | payer OTHER ==
[~2019-11-05] VITALS: Ht 154.9 cm; Wt 77.1 kg
[2019-11-05 23:59] VITALS: BP 111/87
[2019-11-06] MEDS ORDERED: ACETAMINOPHEN 325 MG TAB PO ONE (00:15)
[2019-11-06 00:20] VITALS: BP 111/87
--- NOTE | 2019-11-06 00:20 | NUR ---
PATIENT LEFT WITHOUT BEING SEEN BY DR. amador. NO FURTHER CARE PROVIDED FOR PATIENT.
--- NOTE | 2019-11-06 00:20 | NUR ---
PATIENT LEFT WITHOUT BEING SEEN BY DR. SEGUNDO. NO FURTHER CARE PROVIDED FOR PATIENT.
== END 2019-11-06 00:20 | disposition left against medical advice (07) ==
LOC: MED 23:55
DX: R10.9 Unspecified abdominal pain (principal); I10 Essential (primary) hypertension; J45.909 Unspecified asthma, uncomplicated; Z90.49 Acquired absence of other specified parts of digestive tract; Z88.6 Allergy status to analgesic agent; Z88.5 Allergy status to narcotic agent; Z91.09 Other allergy status, other than to drugs and biological substances; Z98.890 Other specified postprocedural states; Z79.899 Other long term (current) drug therapy

== ENCOUNTER 2019-11-22 01:00 | Emergency (ER) | payer OTHER ==
[~2019-11-22] VITALS: Ht 162.6 cm; Wt 79.4 kg
[2019-11-22 01:02] VITALS: BP 115/71
[2019-11-22] MEDS ORDERED: MORPHINE SULFATE 4 MG/ML SYR IM ONE (01:25)
[2019-11-22 01:43] VITALS: BP 115/71
== END 2019-11-22 01:43 | disposition home or self-care (01) ==
LOC: MED 01:00
DX: M79.10 Myalgia, unspecified site (principal); I10 Essential (primary) hypertension; J45.909 Unspecified asthma, uncomplicated; Z88.6 Allergy status to analgesic agent; Z88.5 Allergy status to narcotic agent; Z88.8 Allergy status to other drugs, medicaments and biological substances; Z88.9 Allergy status to unspecified drugs, medicaments and biological substances; Z79.899 Other long term (current) drug therapy; V49.88XA Car occupant (driver) (passenger) injured in other specified transport accidents, initial encounter; Y93.89 Activity, other specified; Y92.89 Other specified places as the place of occurrence of the external cause; Y99.8 Other external cause status
CPT/HCPCS: 96372; 99283; J2270

== ENCOUNTER 2019-12-01 00:47 | Emergency (ER) | payer OTHER ==
[~2019-12-01] VITALS: Ht 154.9 cm; Wt 80.7 kg
[2019-12-01 01:04] VITALS: BP 125/96
[2019-12-01] MEDS ORDERED: MORPHINE SULFATE 4 MG/ML SYR IM ONE (01:15)
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
[2019-12-01 01:32] VITALS: BP 115/62
--- NOTE | 2019-12-01 01:33 | NUR ---
Patient discharged with v/s stable. Written and verbal after care instructions given and explained. Patient alert, oriented and verbalized understanding of instructions. Ambulatory with steady gait. All questions addressed prior to discharge. ID band removed. Patient advised to follow up with PMD. Opportunity to ask questions provided and answered.
== END 2019-12-01 01:33 | disposition home or self-care (01) ==
LOC: MED 00:47
DX: G89.29 Other chronic pain (principal); M25.562 Pain in left knee; J45.909 Unspecified asthma, uncomplicated; I10 Essential (primary) hypertension; Z79.899 Other long term (current) drug therapy; Z88.5 Allergy status to narcotic agent; Z88.6 Allergy status to analgesic agent; Z88.8 Allergy status to other drugs, medicaments and biological substances
CPT/HCPCS: 29505; 96372; 99283; J2270

== ENCOUNTER 2019-12-22 16:48 | Emergency (ER) | payer OTHER ==
[~2019-12-22] VITALS: Ht 154.9 cm; Wt 82.1 kg
[2019-12-22 16:51] VITALS: BP 133/86
--- NOTE | 2019-12-22 17:00 | NUR ---
C/O 10/ PAIN TO BILAT FLANK AREA X2 DAYS ACCOMPANIED BY NAUSEA. PT DENIES FEVER/VOMITING/DIARRHEA. PT STATES SHE ALSO HAS INTERMITTENT PAIN RADIATING DOWN HER LLE. ABDOMEN SOFT/FLAT AND TENDER TO PALPATION. BOWEL SOUNDS PRESENT X4. PT GUARDING HER ABDOMEN AND TEARFUL. PT PLACED IN GOWN. BED IN LOW POSITION, SIDE RAIL UP X1.
--- NOTE | 2019-12-22 17:10 | NUR ---
DR. TEJEDA EVALUATING PT AT BEDSIDE
[2019-12-22] MEDS ORDERED: ONDANSETRON 4 MG/2 ML VIAL IVP ONE (17:25)
[2019-12-22] MEDS ORDERED: MORPHINE SULFATE 4 MG/ML SYR IVP ONE ×2 (17:25→18:35)
[2019-12-22] MEDS ORDERED: NACL 0.9% 1,000 ML IV ONE (17:25)
--- NOTE | 2019-12-22 17:45 | NUR ---
PT RQ BENADRYL WITH MORPHINE DUE TO IT "MAKING HER ITCHY". DR. TEJEDA NOTIFIED
[2019-12-22] MEDS ORDERED: diphenhydrAMINE 50 MG/ML VIAL IVP ONE ×2 (17:55→18:50)
--- NOTE | 2019-12-22 18:00 | NUR ---
PT CONTINUES TO C/O PAIN, 04/19. STATES THE PREVIOUS DOSE OF MORPHINE DID NOT PROVIDE ANY RELIEF. DR. TEJEDA NOTIFIED.
[2019-12-22] MEDS ORDERED: ONDANSETRON 4 MG/2 ML VIAL ONE (18:02)
[2019-12-22 18:16] LABS: APPEARANCE,URINE CLOUDY (CLEAR); BILIRUBIN,URINE NEGATIVE (NEGATIVE); BLOOD, URINE 3+ (NEGATIVE); COLOR,URINE YELLOW (YELLOW); LEUKOCYTE ESTERASE ,URINE 2+ (NEGATIVE); NITRITE, URINE NEGATIVE (NEGATIVE); UGLUCOSE NEGATIVE (NEGATIVE)
[2019-12-22 18:23] LABS: ALBUMIN 3.6 g/dL (3.4-5.0); ANION GAP 12.8 (8-16); CARBON DIOXIDE 25.7 mmol/L (21-32); CREATININE 0.8 mg/dL (0.6-1.3); POTASSIUM 3.5 mmol/L (3.5-5.1); TOTAL BILIRUBIN 0.2 mg/dL (0.0-1.0)
[2019-12-22] MEDS ORDERED: fentaNYL 0.05 MG/ML VIAL IVP ONE (18:25)
[2019-12-22 18:27] LABS: RBC,URINE 20-50 /HPF (0-5)
[2019-12-22 18:37] LABS: BASOPHILS % (AUTO) 0.4 % (0.0-2.0); EOSINOPHILS # (AUTO) 0.4 K/uL (0-0.4); EOSINOPHILS % (AUTO) 6.6 % (0.0-4.0); HEMATOCRIT 29.5 % (36-48); HEMOGLOBIN 9.5 g/dL (12.0-16.0); LYMPHOCYTES # (AUTO) 1.1 K/uL (2.5-16.5); LYMPHOCYTES % (AUTO) 17.5 % (20.5-51.1); MEAN CORPUSCULAR HEMOGLOBIN 25 pg (27-31); MEAN CORPUSCULAR HGB CONC 32 g/dL (33-37); MEAN CORPUSCULAR VOLUME 77.5 fL (80-94); MONOCYTES # (AUTO) 0.4 K/uL (0.8-1.0); MONOCYTES % (AUTO) 5.8 % (1.7-9.3); NEUTROPHILS # (AUTO) 4.4 K/uL (1.8-7.7); NEUTROPHILS % (AUTO) 69.7 % (42.2-75.2); PLATELET COUNT (AUTO) 271 K/uL (140-450); RED BLOOD CELL COUNT(AUTO) 3.81 MIL/uL (4.20-5.40); RED CELL DISTRIBUTION WIDTH 19.6 % (11.6-13.7); WHITE BLOOD COUNT (AUTO) 6.3 K/uL (4.8-10.8)
--- NOTE | 2019-12-22 18:38 | NUR ---
PT REFUSED FENTANYL, STATED "IM ALLERGIC, IT WILL MAKE ME BREAK OUT". DR. TEJEDA NOTIFIED. WASTED SYRINGE OF 75MCG FENTANYL WITH RUTHIE MENDOZA & DOCUMENTED IN [facility].
--- NOTE | 2019-12-22 18:47 | NUR ---
ADMINISTERED MORPHINE ORDERED, PT REQUESTING MORE BENADRYL. DR TEJEDA NOTIFIED.
--- NOTE | 2019-12-22 19:00 | NUR ---
administered benadryl as ordered
--- NOTE | 2019-12-22 19:06 | NUR ---
Patient discharged with v/s stable. Written and verbal after care instructions given and explained. Patient alert, oriented and verbalized understanding of instructions. Ambulatory with steady gait. All questions addressed prior to discharge. ID band removed. Patient advised to follow up with PMD. Rx of norco, cipro, flomax, and zofran given. Patient educated on indication of medication including possible reaction and side effects. Opportunity to ask questions provided and answered. pt friend is driving her home.
[2019-12-22 19:07] VITALS: BP 117/80
== END 2019-12-22 19:06 | disposition home or self-care (01) ==
LOC: MED 16:48
DX: N39.0 Urinary tract infection, site not specified (principal); J45.909 Unspecified asthma, uncomplicated; I10 Essential (primary) hypertension; Z79.899 Other long term (current) drug therapy; Z88.2 Allergy status to sulfonamides; Z88.5 Allergy status to narcotic agent; Z88.8 Allergy status to other drugs, medicaments and biological substances; Z90.49 Acquired absence of other specified parts of digestive tract
CPT/HCPCS: 36415; 76770; 80053; 81001; 81025; 83690; 85025; 87086; 96374; 96375; 96376; 99284; J1200; J2270; J2405; J3010; J7030; Q0092

== ENCOUNTER 2019-12-28 15:57 | Emergency (ER) | payer OTHER ==
[~2019-12-28] VITALS: Ht 154.9 cm; Wt 81.6 kg
[2019-12-28 16:05] VITALS: BP 124/79
[2019-12-28] MEDS ORDERED: ONDANSETRON 4 MG ODT PO ONE (16:55)
[2019-12-28 17:19] VITALS: BP 124/79
== END 2019-12-28 17:00 | disposition left against medical advice (07) ==
LOC: MED 15:57
DX: R10.9 Unspecified abdominal pain (principal); I10 Essential (primary) hypertension; J45.909 Unspecified asthma, uncomplicated; Z88.8 Allergy status to other drugs, medicaments and biological substances; Z88.6 Allergy status to analgesic agent; Z90.711 Acquired absence of uterus with remaining cervical stump; Z91.018 Allergy to other foods; Z79.899 Other long term (current) drug therapy; Z90.49 Acquired absence of other specified parts of digestive tract
CPT/HCPCS: 81002; 99281

== ENCOUNTER 2020-01-01 03:09 | Emergency (ER) | payer OTHER ==
[~2020-01-01] VITALS: Ht 154.9 cm; Wt 81.6 kg
[2020-01-01 03:10] VITALS: BP 107/86
--- NOTE | 2020-01-01 03:23 | NUR ---
PT AMBULATED TO BED 7 WITH STEADY GAIT
--- NOTE | 2020-01-01 03:33 | NUR ---
39F PRESENTS TO ED WITH C/O LEFT SIDED FLANK PAIN X 4 DAYS THAT IS INTERMITTENT; PAIN 10/10; PT TOOK NORCO 5 PRIOR TO ER VISIT WITH NO RELIEF 2 HOURS AGO; PRIOR TO [facility] ER VISIT PT WAS AT [facility] AND LEFT. NEURO WNL. RR EVEN AND UNLABORED. CBL SOUNDS. ABDOMEN SOFT AND NON TENDER. BOWEL SOUNDS NORMOACTIVE BOWEL SOUNDS ON ALL QUADRANTS. PMH:HYSTERECTOMY 2010/HTN/ANXIETY/ASTHMA/DEPRESSION/BIPOLAR/KIDNEY STONE ALLERGY: NSAIDS/ASA/CODEINE/IBUPROFEN/TORADOL/REGLAN/COMPAZINE
--- NOTE | 2020-01-01 03:35 | NUR ---
Dr. Sullivan examining patient.
[2020-01-01] MEDS ORDERED: NACL 0.9% 500 ML IV ONE (03:37)
[2020-01-01] MEDS ORDERED: MORPHINE SULFATE 2 MG/ML SYR IVP ONE ×2 (03:40→04:45)
[2020-01-01] MEDS ORDERED: ONDANSETRON 4 MG/2 ML VIAL IVP ONE (03:40)
[2020-01-01] MEDS ORDERED: diphenhydrAMINE 50 MG/ML VIAL IVP ONE ×2 (03:40→04:45)
--- NOTE | 2020-01-01 03:54 | NUR ---
PT TAKEN TO CT
[2020-01-01 04:01] LABS: APPEARANCE,URINE CLOUDY (CLEAR); BILIRUBIN,URINE NEGATIVE (NEGATIVE); BLOOD, URINE 3+ (NEGATIVE); COLOR,URINE DARK YELLOW (YELLOW); LEUKOCYTE ESTERASE ,URINE 3+ (NEGATIVE); NITRITE, URINE NEGATIVE (NEGATIVE); PH,URINE 6.5 (5.0-9.0); UGLUCOSE NEGATIVE (NEGATIVE)
--- NOTE | 2020-01-01 04:05 | NUR ---
PT RETURN FROM CT
[2020-01-01 04:12] LABS: RBC,URINE >100 /HPF (0-5); WBC,URINE 80-100 /HPF (0-5)
[2020-01-01 04:13] LABS: HYALINE CASTS, URINE 0-10 /LPF (None Seen)
--- NOTE | 2020-01-01 04:50 | NUR ---
PT MEDICATED WITH MORPHINE AND BENADRYL. TOLERATED WELL. ZEINAR
== END 2020-01-01 06:00 | disposition home or self-care (01) ==
LOC: MED 03:09
DX: N20.0 Calculus of kidney (principal); J45.909 Unspecified asthma, uncomplicated; I10 Essential (primary) hypertension; Z87.442 Personal history of urinary calculi; Z79.899 Other long term (current) drug therapy; Z88.6 Allergy status to analgesic agent; Z88.8 Allergy status to other drugs, medicaments and biological substances; Z88.5 Allergy status to narcotic agent
CPT/HCPCS: 74176; 81001; 87086; 96374; 96375; 96376; 99284; J1200; J2270; J2405; J7030

== ENCOUNTER 2020-01-02 04:57 | Emergency (ER) | payer OTHER ==
[~2020-01-02] VITALS: Ht 154.9 cm; Wt 81.6 kg
[2020-01-02 05:04] VITALS: BP 121/78
--- NOTE | 2020-01-02 05:05 | NUR ---
TRIAGE COMPLETE. IN LOBBY AWATING BED IN ED.
--- NOTE | 2020-01-02 05:07 | NUR ---
PT IS PERSISTANTLY ASKING WHICH ATTENDING IS ON DUTY. EDUCATED PT THAT DOCTORS ROTATE FREQUENTLY AND SHE WOULD BE SEEN SOON POSSIBLE.
--- NOTE | 2020-01-02 06:13 | NUR ---
PT IS REFUSING ULTRASOUND BECAUSE SHE HAS NOT BEEN PLACED INTO AN ED BED AND BEEN SEEN BY A DOCTOR. STATES "I DONT LIKE HOW IM BEING TREATED AND TALKED TO" EDUCATED PATIENT THAT SHE IS IN THE LOBBY AWAITING BED IN THE ED AND REFUSING THE ULTRASOUND WOULD DELAY HER CARE. PT STATES "I DONT CARE ILL WAIT"
--- NOTE | 2020-01-02 06:40 | NUR ---
TO ED 12, AMBULATORY
--- NOTE | 2020-01-02 06:45 | NUR ---
39 YEAR OLD FEMALE COMPLAINS OF LEFT FLANK PAIN X 1 WEEK. PT STATES THAT SHE HAS BLOOD IN URINE. PT DENIES ANY OTHER COMPLAINTS. PT STATES ORDERED NORCO FOR PREVIOUS VISIT NOT WORKING FOR PAIN. PT AOX4, BREATHING EVEN AND UNLABORED, SKIN WARM AND DRY. BED IN LOWEST POSITION, LOCKED, BED RAIL UPX1. PMH - ASTHMA, HTN, KIDNEY STONES, PANIC ATTACK
--- NOTE | 2020-01-02 07:09 | NUR ---
PT ALERT AND AWAKE, BREATHING EVEN AND UNLABORED
--- NOTE | 2020-01-02 07:13 | NUR ---
REPORT GIVEN TO CYNTHIA HENDRICKS, TRANSFER OF CARE AT THIS TIME
[2020-01-02] MEDS ORDERED: NACL 0.9% 1,000 ML IV ONE (07:20)
[2020-01-02] MEDS ORDERED: ONDANSETRON 4 MG/2 ML VIAL IVP ONE (07:20)
[2020-01-02] MEDS ORDERED: MORPHINE SULFATE 4 MG/ML SYR IVP ONE (07:20)
--- NOTE | 2020-01-02 07:21 | NUR ---
Pt report received from RUTHIE Donnelly. Transfer of care at this time.
[2020-01-02] MEDS ORDERED: diphenhydrAMINE 50 MG/ML VIAL IVP ONE (07:30)
--- NOTE | 2020-01-02 08:24 | NUR ---
PT IS RESTING IN THE BED. 1L BOLUS IS RUNNING VIA IV 24 G ON THE RT FOOT.
[2020-01-02 08:57] LABS: APPEARANCE,URINE SL CLOUDY (CLEAR); BILIRUBIN,URINE NEGATIVE (NEGATIVE); BLOOD, URINE 3+ (NEGATIVE); COLOR,URINE YELLOW (YELLOW); NITRITE, URINE POSITIVE (NEGATIVE); PH,URINE 6.5 (5.0-9.0); UGLUCOSE NEGATIVE (NEGATIVE)
[2020-01-02 09:06] VITALS: BP 118/75
[2020-01-02 09:22] LABS: LEUKOCYTE ESTERASE ,URINE 1+ (NEGATIVE)
[2020-01-02 09:23] LABS: YEAST,URINE Few /HPF (None Seen)
[2020-01-02 09:26] LABS: WBC,URINE 0-5 /HPF (0-5)
== END 2020-01-02 09:05 | disposition home or self-care (01) ==
LOC: MED 04:57
DX: N20.0 Calculus of kidney (principal); F41.0 Panic disorder [episodic paroxysmal anxiety]; G89.29 Other chronic pain; I10 Essential (primary) hypertension; J45.909 Unspecified asthma, uncomplicated; N28.9 Disorder of kidney and ureter, unspecified; Z88.6 Allergy status to analgesic agent; Z88.8 Allergy status to other drugs, medicaments and biological substances; Z79.899 Other long term (current) drug therapy
CPT/HCPCS: 81001; 87086; 96374; 96375; 99284; J1200; J2270; J2405; J7030

== ENCOUNTER 2020-01-13 05:24 | Emergency (ER) | payer OTHER ==
[~2020-01-13] VITALS: Ht 154.9 cm; Wt 81.6 kg
[2020-01-13 05:28] VITALS: BP 111/68
--- NOTE | 2020-01-13 05:38 | NUR ---
PT AMBULATED TO CHAIR A
--- NOTE | 2020-01-13 05:50 | NUR ---
PT STATES "IM GOING TO GET MY UBER SUPERVISING DEPUTY AND LET HIM KNOW THAT I'M GOING TO BE MORE THAN A FEW MINUTES"
--- NOTE | 2020-01-13 05:58 | NUR ---
PT LEFT FACILITY AT THIS TIME. NO FURTHER CARE PROVIDED, DR BLUE AWARE.
== END 2020-01-13 05:50 | disposition left against medical advice (07) ==
LOC: MED 05:24
DX: R10.9 Unspecified abdominal pain (principal); Z53.21 Procedure and treatment not carried out due to patient leaving prior to being seen by health care provider

== ENCOUNTER 2020-02-01 05:05 | Emergency (ER) | payer OTHER ==
--- NOTE | 2020-02-01 05:30 | NUR ---
PATIENT LEFT WITHOUT BEING SEEN BY DR. MCNULTY OR TRIAGED.. NO FURTHER CARE PROVIDED FOR PATIENT.
== END 2020-02-01 05:30 | disposition left against medical advice (07) ==
LOC: MED 05:05
DX: R10.9 Unspecified abdominal pain (principal); Z53.21 Procedure and treatment not carried out due to patient leaving prior to being seen by health care provider

== ENCOUNTER 2020-02-16 23:29 | Emergency (ER) | payer OTHER ==
[~2020-02-16] VITALS: Ht 154.9 cm; Wt 78.9 kg
[2020-02-16 23:36] VITALS: BP 129/92
--- NOTE | 2020-02-16 23:43 | NUR ---
PT TAKEN TO BED 6
--- NOTE | 2020-02-16 23:43 | NUR ---
Herminio mackenzie in [facility] - 02/16/20 at 2355 by DEMARCUS PT TAKEN TO BED 7
--- NOTE | 2020-02-16 23:55 | NUR ---
Dr. Berry examining patient.
[2020-02-17] MEDS ORDERED: ONDANSETRON 4 MG/2 ML VIAL IVP ONE
--- NOTE | 2020-02-17 00:52 | NUR ---
PT BIB SELF C/O INCREASING LOWER BACK PAIN X1 DAY. PT STATES SHE HAS KIDNEY STONES. + NAUSEA, - VOMITING, - DIARRHEA, - DYSURIA, - FEVER.
--- NOTE | 2020-02-17 01:07 | NUR ---
PT RETRUN FROM CT
[2020-02-17] MEDS ORDERED: MORPHINE SULFATE 4 MG/ML SYR IVP ONE ×2 (02:15)
[2020-02-17 02:26] VITALS: BP 117/89
== END 2020-02-17 02:26 | disposition home or self-care (01) ==
LOC: MED 23:29
DX: R10.9 Unspecified abdominal pain (principal); N23 Unspecified renal colic; I10 Essential (primary) hypertension; J45.909 Unspecified asthma, uncomplicated; Z88.6 Allergy status to analgesic agent; Z88.8 Allergy status to other drugs, medicaments and biological substances; Z88.3 Allergy status to other anti-infective agents; Z90.49 Acquired absence of other specified parts of digestive tract; Z79.899 Other long term (current) drug therapy; Z90.710 Acquired absence of both cervix and uterus
CPT/HCPCS: 74176; 81002; 81025; 96374; 96375; 96376; 99284; J2270; J2405; 96361

== ENCOUNTER 2020-03-11 15:16 | Emergency (ER) | payer OTHER ==
[~2020-03-11] VITALS: Ht 162.6 cm; Wt 81.6 kg
[2020-03-11 15:18] VITALS: BP 135/86
--- NOTE | 2020-03-11 15:27 | NUR ---
urine cup handed to pt for sample
--- NOTE | 2020-03-11 15:28 | NUR ---
40 yo female c/o sudden onset of left flank pain x yesterday ---denies dysuria but admits to light hematuria hx--htn, asthma, panic attack, chronic sinusitis rx---albuterol, losartan, amlodipine, claritine, xanax
[2020-03-11] MEDS ORDERED: ONDANSETRON 4 MG ODT PO ONE (16:25)
[2020-03-11] MEDS ORDERED: MORPHINE SULFATE 4 MG/ML SYR IM ONE (16:25)
[2020-03-11] MEDS ORDERED: NACL 0.9% 1,000 ML IV ONE (16:50)
[2020-03-11] MEDS ORDERED: MORPHINE SULFATE 4 MG/ML SYR IVP ONE (16:50)
[2020-03-11] MEDS ORDERED: cefTRIAXone 1,000 MG VIAL ONE (17:05)
[2020-03-11 18:04] VITALS: BP 117/81
== END 2020-03-11 18:05 | disposition home or self-care (01) ==
LOC: MED 15:16
DX: N20.0 Calculus of kidney (principal); J45.909 Unspecified asthma, uncomplicated; I10 Essential (primary) hypertension; Z87.442 Personal history of urinary calculi; Z79.899 Other long term (current) drug therapy; Z88.5 Allergy status to narcotic agent; Z88.2 Allergy status to sulfonamides; Z88.8 Allergy status to other drugs, medicaments and biological substances
CPT/HCPCS: 81002; 81025; 96365; 96375; 99284; J0696; J2270; J7030; Q0162; Q0163

== ENCOUNTER 2020-04-03 19:49 | Emergency (ER) | payer OTHER ==
[~2020-04-03] VITALS: Ht 154.9 cm; Wt 79.6 kg
[2020-04-03 20:09] VITALS: BP 109/79
--- NOTE | 2020-04-03 20:17 | NUR ---
PT TAKEN TO BED 4
--- NOTE | 2020-04-03 20:31 | NUR ---
PT C/O LEFT SIDED FLANK PAIN @ 9/10, ADULT SCALE. STATES THAT SHE HAS A HISTORY OF KIDNEY STONES AND BELIEVES THAT SHE CURRENTLY HAS ANOTHER. WITHDRAWS TO PALPATION. WNL UPON VISUALIZATION. STATES THAT SHE HAS A NEPHROLOGY APPOINTMENT 04/08 AT [facility]. ALSO STATES THAT SHE HAS A BERTRAND CYST TO LT POST KNEE, PAIN @ 04/19, BUT REFUSES TO REMOVE PANTS, UNABLE TO VISUALIZE AT THIS TIME. STATES THAT SHE IS UNABLE TO LIFT KNEE OR WALK DUE TO PAIN. PMH- KIDNEY STONES, CHRONIC SINUSITIS, ASTHMA, MIGRAINES, PANIC ATTACKS, HTN. MEDS TAKEN- ALBUTEROL, AMLODIPINE, LOSARTAN POTASSIUM, LORATIDINE, OXYCARBAMAZIPINE, ZANAX. ALLERGIES- NSAIDS, ASA, IBUPROFEN.
[2020-04-03 21:02] VITALS: BP 109/79
--- NOTE | 2020-04-03 21:06 | NUR ---
Dr. Sullivan examining patient.
[2020-04-03] MEDS: MORPHINE SULFATE 2 MG/ML SYR IM ONE ×2 (21:19→21:57)
[2020-04-03] MEDS: ONDANSETRON 4 MG ODT PO ONE (21:19)
--- NOTE | 2020-04-03 21:19 | NUR ---
MEDICATED ORDERED WITHOUT INCIDENT. WILL FOLLOW-UP
[2020-04-03 21:28] LABS: APPEARANCE,URINE CLEAR (CLEAR); BILIRUBIN,URINE NEGATIVE (NEGATIVE); BLOOD, URINE 3+ (NEGATIVE); COLOR,URINE YELLOW (YELLOW); LEUKOCYTE ESTERASE ,URINE 2+ (NEGATIVE); NITRITE, URINE NEGATIVE (NEGATIVE); UGLUCOSE NEGATIVE (NEGATIVE)
[2020-04-03 21:46] LABS: RBC,URINE >100 /HPF (0-5)
--- NOTE | 2020-04-03 21:50 | NUR ---
PT STATES NO RELIEF FROM PAIN MEDICATION. CELYD MADE AWARE.
--- NOTE | 2020-04-03 21:56 | NUR ---
MEDICATION ADMINISTERED ORDERED WITHOUT INCIDENT. WILL FOLLOW UP
--- NOTE | 2020-04-03 22:16 | NUR ---
PT DISCHARGED, REFUSED TO SIGN D/C INSTRUCTIONS. DR PERSON MADE AWARE
== END 2020-04-03 22:16 | disposition home or self-care (01) ==
LOC: MED 19:49
DX: R31.9 Hematuria, unspecified (principal); R10.9 Unspecified abdominal pain
CPT/HCPCS: 81001; 87086; 96372; 99284; J2270; Q0162

== ENCOUNTER 2020-04-19 16:36 | Emergency (ER) | payer OTHER ==
[~2020-04-19] VITALS: Ht 154.9 cm; Wt 81.6 kg
[2020-04-19 16:41] VITALS: BP 127/77
[2020-04-19] MEDS ORDERED: NACL 0.9% 1,000 ML IV ONE (17:05)
[2020-04-19] MEDS ORDERED: ONDANSETRON 4 MG/2 ML VIAL IVP SCH (17:05)
[2020-04-19] MEDS ORDERED: ACETAMINOPHEN EXTRA STRENGTH 500 MG TAB PO SCH (17:05)
== END 2020-04-19 17:15 | disposition left against medical advice (07) ==
LOC: MED 16:36
DX: R10.9 Unspecified abdominal pain (principal); F11.10 Opioid abuse, uncomplicated; J45.909 Unspecified asthma, uncomplicated; I10 Essential (primary) hypertension; Z88.6 Allergy status to analgesic agent; Z88.5 Allergy status to narcotic agent; Z88.8 Allergy status to other drugs, medicaments and biological substances; Z79.899 Other long term (current) drug therapy
CPT/HCPCS: 36415; 99281; J2405; J7030

== ENCOUNTER 2020-05-21 23:12 | Emergency (ER) | payer OTHER ==
[~2020-05-21] VITALS: Ht 154.9 cm; Wt 81.2 kg
[2020-05-21 23:29] VITALS: BP 133/91
[2020-05-22 01:10] VITALS: BP 133/91
== END 2020-05-22 01:10 | disposition left against medical advice (07) ==
LOC: MED 23:12
DX: R10.9 Unspecified abdominal pain (principal); I10 Essential (primary) hypertension; J45.909 Unspecified asthma, uncomplicated; Z88.5 Allergy status to narcotic agent; Z88.6 Allergy status to analgesic agent; Z88.8 Allergy status to other drugs, medicaments and biological substances; Z79.899 Other long term (current) drug therapy; Z53.21 Procedure and treatment not carried out due to patient leaving prior to being seen by health care provider

== ENCOUNTER 2020-06-04 19:24 | Emergency (ER) | payer OTHER ==
[~2020-06-04] VITALS: Ht 154.9 cm; Wt 77.1 kg
[2020-06-04 19:26] VITALS: BP 139/91
--- NOTE | 2020-06-04 19:35 | NUR ---
PT SENT TO LOBBY AT THIS TIME WAITING FOR ROOM TO BECOME AVAILABLE. NO ACUTE DISTRESS NOTED AT THIS TIME.
--- NOTE | 2020-06-04 20:46 | NUR ---
PT RETURN TO ER LOBBY FORM RADIOLOGY
--- NOTE | 2020-06-04 21:35 | NUR ---
PT C/O OF TOO LONG OF WAIT AT THIS TIME. PT EXPLAINED THAT THERE ARE NO BEDS AVAILABLE AT THIS TIME AND WILL BE GIVEN A BED SOON THERE IS ONE AVAILABLE FOR HER. PT IS IN NO ACUTE DISTRESS AT THIS TIME.
--- NOTE | 2020-06-04 21:40 | NUR ---
Herminio mackenzie in EDM - 06/04/20 at 2201 by JANNETTE PT C/O OF TOO LONG OF WAIT AT THIS TIME. PT EXPLAINED THAT THERE ARE NO BEDS AVAILABLE AT THIS TIME AND WILL BE GIVEN A BED SOON THERE IS ONE AVAILABLE FOR HER. PT IS IN NO ACUTE DISTRESS AT THIS TIME.
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
--- NOTE | 2020-06-04 22:01 | NUR ---
PT IN TRIAGE W/ ERPA AT THIS TIME FOR MEDICAL EVALUATION.
--- NOTE | 2020-06-04 22:05 | NUR ---
PT TAKEN TO CHAIR C AT THIS TIME. NO ACUTE DISTRES NOTED .
[2020-06-04] MEDS ORDERED: MORPHINE TAB ER 30 MG TABER PO ONE (22:10)
--- NOTE | 2020-06-04 22:19 | NUR ---
GLADYS VENTURA RE-EVALUATING PT AT THIS TIME.
--- NOTE | 2020-06-04 22:20 | NUR ---
PT STATED TO GLADYS VENTURA THAT SHE IS ALLERGIC TO NORCO AND UNABLE TO TAKE THAT IN HOME SETTING
--- NOTE | 2020-06-04 22:25 | NUR ---
PT STATES SHE DOESN'T WANT TO TAKE ORAL MORPHINE BECAUSE IT "DOESNT NOT WORK FOR HER"
--- NOTE | 2020-06-04 22:30 | NUR ---
PT STATED THAT SHE WILL NOT LEAVE WITHOUT SPEAKING TO THE DR ABOUT RECEIVING A NORCO PRESCRIPTION.
[2020-06-04 22:35] VITALS: BP 135/84
--- NOTE | 2020-06-04 22:35 | NUR ---
PT REFUSED TO SIGN DISCHARGE PAPERWORK AND LEFT WITHOUT FURTHER EVALUATION OF MEDICATION THAT WAS ADMINISTERED
--- NOTE | 2020-06-04 22:35 | NUR ---
Patient discharged with v/s stable. Written and verbal after care instructions given and explained. Patient verbalized understanding. Ambulatory with steady gait. All questions addressed prior to discharge. Advised to follow up with PMD. Pt refused to sign discharge papers at this time and to wait for re-evaluation of medication administered.
== END 2020-06-04 22:35 | disposition home or self-care (01) ==
LOC: MED 19:24
DX: S16.1XXA Strain of muscle, fascia and tendon at neck level, initial encounter (principal); S13.4XXA Sprain of ligaments of cervical spine, initial encounter; Z88.6 Allergy status to analgesic agent; Z88.5 Allergy status to narcotic agent; Z79.899 Other long term (current) drug therapy; V89.2XXA Person injured in unspecified motor-vehicle accident, traffic, initial encounter; Y93.89 Activity, other specified; Y92.89 Other specified places as the place of occurrence of the external cause; Y99.8 Other external cause status
CPT/HCPCS: 71045; 72050; 99284

== ENCOUNTER 2020-08-11 23:45 | Emergency (ER) | payer OTHER ==
[~2020-08-11] VITALS: Ht 154.9 cm; Wt 82.6 kg
[2020-08-11 23:50] VITALS: BP 132/94
--- NOTE | 2020-08-11 23:53 | NUR ---
TO LOBBY AMBULATORY
--- NOTE | 2020-08-12 01:40 | NUR ---
SEEN AND EXAMINED BY ERMD WITH ORDERS CARRIED OUT.
--- NOTE | 2020-08-12 03:38 | NUR ---
CT RESULT BACK AND NOTED BY ERMD AND FOR D/C.
--- NOTE | 2020-08-12 03:40 | NUR ---
ERMD ORDER MEDICATIONS, PATIENT REFUSED MEDICATIONS, ERMD NOTED
[2020-08-12 03:50] VITALS: BP 132/94
--- NOTE | 2020-08-12 03:50 | NUR ---
PATIENT FOR D/C , SHE REFUSES TO SIGN D/C PAPERS.
[2020-08-12] MEDS: ONDANSETRON 4 MG ODT PO ONE (03:51)
[2020-08-12] MEDS: ACETAMINOPHEN EXTRA STRENGTH 500 MG TAB PO ONE (03:51)
== END 2020-08-12 03:50 | disposition home or self-care (01) ==
LOC: MED 23:45
DX: R10.9 Unspecified abdominal pain (principal); R11.2 Nausea with vomiting, unspecified; J45.909 Unspecified asthma, uncomplicated; I10 Essential (primary) hypertension; Z88.6 Allergy status to analgesic agent; Z88.5 Allergy status to narcotic agent; Z88.8 Allergy status to other drugs, medicaments and biological substances; Z79.899 Other long term (current) drug therapy
CPT/HCPCS: 81002; 81025; 99284; Q0162

== ENCOUNTER 2021-11-04 16:28 | Emergency (ER) | payer OTHER ==
[~2021-11-04] VITALS: Ht 154.9 cm; Wt 69.4 kg
[2021-11-04 16:42] VITALS: BP 125/95
[2021-11-04] MEDS ORDERED: MORPHINE SULFATE 4 MG/ML SYR IVP ONE ×3 (16:50→19:55)
[2021-11-04] MEDS ORDERED: NACL 0.9% 1,000 ML IV ONE ×2 (16:50→19:00)
--- NOTE | 2021-11-04 17:48 | NUR ---
41 Y/O FEMALE BIBA C/O L FLANK PAIN,N/V X2DAYS. PT PT HAS HISTORY OF KIDNEY STONES. PT DENIES FEVER/CHILLS, SOB, CHEST PAIN. PAIN IS NONRADIATING, RATED 10/10. PT DENIES AGGREVATING OR ALLEVIATING FACTORS. PT DENIES DYSURIA. PT STATES SHE TOOK TYLENOL PRIOR TO ARRIVAL WITH NO SYMPTOMATIC RELIEF. PT IS ALERT AND ORIENTED X4. BED IS IN LOWEST POSITION. BED RAILX1. ALLERGIES: NON-STEROIDAL MEDICATIONS
[2021-11-04] MEDS ORDERED: MORPHINE SULFATE 4 MG/ML SYR IM ONE (17:55)
--- NOTE | 2021-11-04 17:56 | NUR ---
MULTIPLE IV ATTEMPTS UNSUCCESSFUL. PATIENT REFUSING IM/PO MEDICATION FOR SYMPTOMS AT THIS TIME; STATES "ONLY MEDS THROUGH THE IV WORKS FOR ME." DR. TEJEDA MADE AWARE.
--- NOTE | 2021-11-04 17:58 | NUR ---
PATIENT STATES UNABLE TO PROVIDE URINE SAMPLE AT THIS TIME. "I HAVEN'T HAD ANYTHING TO EAT OR DRINK. I CAN'T PEE RIGHT NOW."
--- NOTE | 2021-11-04 19:26 | NUR ---
Pt report given to NOLAN LUND. Transfer of care at this time.
[2021-11-04] MEDS ORDERED: diphenhydrAMINE 50 MG/ML VIAL IVP ONE (19:55)
[2021-11-04 20:07] LABS: EOSINOPHILS % (AUTO) 0.8 % (0.0-4.0); HEMOGLOBIN 10.9 g/dL (12.0-16.0); LYMPHOCYTES # (AUTO) 1.1 K/uL (2.5-16.5); LYMPHOCYTES % (AUTO) 27.7 % (20.5-51.1); MEAN CORPUSCULAR HEMOGLOBIN 25 pg (27-31); MEAN CORPUSCULAR HGB CONC 32 g/dL (33-37); MEAN CORPUSCULAR VOLUME 79.4 fL (80-94); MONOCYTES # (AUTO) 0.3 K/uL (0.8-1.0); MONOCYTES % (AUTO) 8.6 % (1.7-9.3); NEUTROPHILS # (AUTO) 2.4 K/uL (1.8-7.7); NEUTROPHILS % (AUTO) 61.9 % (42.2-75.2); PLATELET COUNT (AUTO) 304 K/uL (140-450); RED BLOOD CELL COUNT(AUTO) 4.28 MIL/uL (4.20-5.40); RED CELL DISTRIBUTION WIDTH 18.8 % (11.6-13.7); WHITE BLOOD COUNT (AUTO) 3.9 K/uL (4.8-10.8)
--- NOTE | 2021-11-04 20:15 | NUR ---
PT PROVIDED JUICE AND ICE CHIPS
[2021-11-04 20:25] LABS: ALBUMIN 3.7 g/dL (3.4-5.0); ANION GAP 8.9 (8-16); CARBON DIOXIDE 28.2 mmol/L (21-32); CREATININE 0.8 mg/dL (0.6-1.3); POTASSIUM 3.1 mmol/L (3.5-5.1); TOTAL BILIRUBIN 0.4 mg/dL (0.0-1.0)
--- NOTE | 2021-11-04 21:45 | NUR ---
Patient appears to be SLEEPING comfortably in bed. Vital Signs within normal limits. Respirations even and unlabored. X2 SIDE RAILS UP
--- NOTE | 2021-11-04 22:09 | NUR ---
DR. TEJEDA AT BEDSIDE .
[2021-11-04] MEDS ORDERED: CIPR500T4 PO (22:26)
[2021-11-04 23:00] VITALS: BP 124/79
--- NOTE | 2021-11-04 23:00 | NUR ---
Patient discharged with v/s stable. Written and verbal after care instructions given and explained. Patient alert, oriented and verbalized understanding of instructions. with steady gait. All questions addressed prior to discharge. ID band removed. Patient advised to follow up with PMD. Rx of CIPRO given. Opportunity to ask questions provided and answered.
--- NOTE | 2021-11-04 23:10 | NUR ---
4900 PT REFUSING TO GO. PT REQ TO SEE DR. TEJEDA . DR TEJEDA GONE FOR THE EVENING . TRIED TO TAKE IV OUT AND SHE REFUSED. CALLED CHARGE NURSE TO REMOVE IV AND CALLED SECURITY
--- NOTE | 2021-11-04 23:22 | NUR ---
The patient's care was reviewed and supervised by Syl Olivares RN.
--- NOTE | 2021-11-10 11:00 | NUR ---
LATE ENTRY-IVF NOT GIVEN PT REFUSED
== END 2021-11-04 23:22 | disposition home or self-care (01) ==
LOC: MED 16:28
DX: N39.0 Urinary tract infection, site not specified (principal); R11.2 Nausea with vomiting, unspecified; J45.909 Unspecified asthma, uncomplicated; I10 Essential (primary) hypertension; Z90.49 Acquired absence of other specified parts of digestive tract; Z90.710 Acquired absence of both cervix and uterus; Z79.899 Other long term (current) drug therapy; Z88.5 Allergy status to narcotic agent; Z88.1 Allergy status to other antibiotic agents; Z88.8 Allergy status to other drugs, medicaments and biological substances; Z88.6 Allergy status to analgesic agent
CPT/HCPCS: 36415; 74176; 80053; 81002; 81025; 83690; 85025; 96374; 96375; 99284; J1200; J2270; J7030; 96361

== ENCOUNTER 2021-11-26 19:32 | Emergency (ER) | payer OTHER ==
[~2021-11-26] VITALS: Ht 154.9 cm; Wt 72.6 kg
[~2021-11-26 19:32] MED LIST changes: +CIPR500T4 PO
[2021-11-26 20:29] VITALS: BP 134/68
--- NOTE | 2021-11-26 20:35 | NUR ---
2034 - PT AMBULATED TO BED WITH NURSE
--- NOTE | 2021-11-26 20:51 | NUR ---
Dr. Palomino examming patient.
--- NOTE | 2021-11-26 20:51 | NUR ---
Dr. Palomino examining patient.
[2021-11-26] MEDS ORDERED: MORPHINE SULFATE 4 MG/ML SYR IVP ONE (20:55)
--- NOTE | 2021-11-26 21:00 | NUR ---
41 Y/O F WITH COMPLAINT OF LEFT LOWER BACK TENDERNESS SINCE YESTERDAY. PT STATES THERE IS BLOOD IN URINE. PAIN 10/10 IN BACK. PT STATES SHE HAS HAD KIDNEY STONES IN THE PAST. PMH: HYSTERECTOMY 2011 APPNEDECTOMY SINUS SURGERY
--- NOTE | 2021-11-26 21:24 | NUR ---
Patient refused Benadryl PO , Dr. Palomino notified.
[2021-11-26] MEDS ORDERED: NACL 0.9% 1,000 ML IV ONE (21:35)
--- NOTE | 2021-11-26 21:39 | NUR ---
2124 PT REFUSED VLOOD WORK SHE SAID HER VEINS WILL BLOW
--- NOTE | 2021-11-26 22:19 | NUR ---
2200- PT C/O PAIN. STATED NO RELIEF FROM MOPRHINE 0 - PT GETTING UP FROM BED. TO GET MORE PAIN MEDS. MADE AWARE. 0- PT NOT LISTENING TO STAY IN BED DUE TO IV LINE.
--- NOTE | 2021-11-26 22:36 | NUR ---
Dr. Hall examining patient.
[2021-11-26 22:55] VITALS: BP 148/104
--- NOTE | 2021-11-26 22:55 | NUR ---
PT RIPPED OUT IV AND MEDICAL BRACELET AND ELOPED. TRIED TO BRING HER BACK BUT STATED SHE WANTED STRONGER PAIN MEDS LIKE DILAUDID. PT DID NOT WANT TO AWAIT ON CT. PT STATED SHE LEFT BECUASE SHE WANTED MORE PAIN MEDS BUT WASNT GETTING THEM. DR. TEJEDA NOTIFIED
--- NOTE | 2021-11-26 22:55 | NUR ---
The patient's care was reviewed and supervised by Fay Cummins RN.
== END 2021-11-26 22:55 | disposition left against medical advice (07) ==
LOC: MED 19:32
DX: R10.9 Unspecified abdominal pain (principal); J45.909 Unspecified asthma, uncomplicated; I10 Essential (primary) hypertension; Z87.448 Personal history of other diseases of urinary system; Z79.899 Other long term (current) drug therapy; Z79.2 Long term (current) use of antibiotics; Z88.6 Allergy status to analgesic agent; Z88.5 Allergy status to narcotic agent; Z88.8 Allergy status to other drugs, medicaments and biological substances
CPT/HCPCS: 81002; 81025; 96361; 96374; 99283; J2270; J7030

== ENCOUNTER 2021-12-03 04:20 | Inpatient (IN) | payer OTHER ==
[~2021-12-03] VITALS: Ht 154.9 cm; Wt 72.6 kg
[2021-12-03 04:29] VITALS: BP 122/86
--- NOTE | 2021-12-03 05:37 | NUR ---
PATIENT AGITATED WITH LAB AND REFUSING LAB DRAW. PATIENT DEMANDING IV MEDS. POSSIBLE DRUG SEEKER. MD AWARE.
[2021-12-03] MEDS ORDERED: MORPHINE SULFATE 4 MG/ML SYR IVP ONE ×3 (06:25→09:15)
[2021-12-03] MEDS ORDERED: diphenhydrAMINE 50 MG/ML VIAL IVP ONE ×3 (06:25→09:15)
[2021-12-03] MEDS ORDERED: NACL 0.9% 1,000 ML IV ONE (06:30)
[2021-12-03] MEDS ORDERED: MORPHINE SULFATE 4 MG/ML SYR IM ONE (06:55)
[2021-12-03] MEDS ORDERED: diphenhydrAMINE 50 MG/ML VIAL IM ONE (06:55)
--- NOTE | 2021-12-03 07:06 | NUR ---
PATIENT REFUSING CT SCAN AND INTRAMUSCULAR MEDICATIONS.
--- NOTE | 2021-12-03 07:07 | NUR ---
MD AWARE OF PATIENT REFUSING MEDICATIONS AND INTERVENTIONS.
--- NOTE | 2021-12-03 07:18 | NUR ---
HANDOFF GIVEN TO CHLOE HENDRICKS.
--- NOTE | 2021-12-03 07:22 | NUR ---
PATIENT REFUSING IM INJECTION FOR PAIN MEDICATION, STATES "IT DOES NOT WORK CAN THE DOCTOR DO AN EJ IV". NOTIFIED.
--- NOTE | 2021-12-03 07:22 | NUR ---
BEDSIDE REPORT RCVD FROM OUTGOING NOC RN ANNA, ALL CARES ASSUMED.
--- NOTE | 2021-12-03 07:30 | NUR ---
MD PLACED 20G INTO LEFT EJ, FLASH PRESENT WITH GOOD FLUSH. COVERED WITH DRESSING.
--- NOTE | 2021-12-03 07:47 | NUR ---
PATIENT MEDICATED FOR PAIN, PATIENT TOLERATED WELL STATES PAIN 10/10 TO LOWER BACK. WILL RE-ASSESS TO DETERMINE IF PAIN MEDICATION WAS EFFECTIVE.
--- NOTE | 2021-12-03 08:00 | NUR ---
PATIENT STATES, "THE MEDICATION DID NOT HELP". AWARE
--- NOTE | 2021-12-03 08:02 | NUR ---
PACKAGE DELIVERY DRIVER AT BEDSIDE, PATIENT STATES, "I WANT AN ULTRASOUND INSTEAD", MD AT BEDSIDE EXPLAINING NEED FOR CT, PATIENT AGREES AND HAS BEEN TAKEN FOR IMAGING.
--- NOTE | 2021-12-03 08:15 | NUR ---
PATIENT RETURNED FROM CT, NO ACUTE DISTRESS NOTED. PATIENT ON HER PHONE.
--- NOTE | 2021-12-03 09:13 | NUR ---
PATIENT TAKEN TO RESTROOM, UA CUP GIVEN FOR SAMPLE, PATIENT STATES, " I STILL HAVE 10/10 PAIN". MADE AWARE.
--- NOTE | 2021-12-03 09:52 | NUR ---
LAB AT BEDSIDE ATTEMPTING LAB DRAW
--- NOTE | 2021-12-03 09:52 | NUR ---
PATIENT MEDICATED FOR PAIN, PATIENT TOLERATED WELL STATES PAIN 10/10 TO LOWER BACK. WILL RE-ASSESS TO DETERMINE IF PAIN MEDICATION WAS EFFECTIVE.
--- NOTE | 2021-12-03 10:01 | NUR ---
URINE PREG NEGATIVE
--- NOTE | 2021-12-03 10:28 | NUR ---
COVID SWAB COLLECTED AND BROUGHT TO LAB
[2021-12-03 10:29] LABS: ANION GAP 11.8 (8-16); CREATININE 0.6 mg/dL (0.6-1.3); POTASSIUM 3.8 mmol/L (3.5-5.1)
[2021-12-03 11:15] LABS: BASOPHILS % (AUTO) 0.7 % (0.0-2.0); EOSINOPHILS % (AUTO) 0.6 % (0.0-4.0); HEMATOCRIT 35.6 % (36-48); HEMOGLOBIN 10.8 g/dL (12.0-16.0); LYMPHOCYTES # (AUTO) 1.2 K/uL (2.5-16.5); LYMPHOCYTES % (AUTO) 31.8 % (20.5-51.1); MEAN CORPUSCULAR HEMOGLOBIN 26 pg (27-31); MEAN CORPUSCULAR HGB CONC 30 g/dL (33-37); MEAN CORPUSCULAR VOLUME 85.5 fL (80-94); MONOCYTES # (AUTO) 0.4 K/uL (0.8-1.0); MONOCYTES % (AUTO) 9.8 % (1.7-9.3); NEUTROPHILS # (AUTO) 2.2 K/uL (1.8-7.7); NEUTROPHILS % (AUTO) 57.1 % (42.2-75.2); PLATELET COUNT (AUTO) 244 K/uL (140-450); RED BLOOD CELL COUNT(AUTO) 4.16 MIL/uL (4.20-5.40); RED CELL DISTRIBUTION WIDTH 20.2 % (11.6-13.7); WHITE BLOOD COUNT (AUTO) 3.8 K/uL (4.8-10.8)
[2021-12-03] MEDS ORDERED: NACL 0.9% 1,000 ML IV SCH (11:50)
[2021-12-03] MEDS ORDERED: ONDANSETRON 4 MG/2 ML VIAL IVP PRN (11:50)
[2021-12-03] MEDS ORDERED: ACETAMINOPHEN 325 MG TAB PO PRN (11:50)
--- NOTE | 2021-12-03 11:59 | NUR ---
NO BED ASSIGNMENT GIVEN AT THIS TIME, PATIENT WILL REMAIN IN ED.
[2021-12-03 12:23] LABS: APPEARANCE,URINE CLEAR (CLEAR); BILIRUBIN,URINE NEGATIVE (NEGATIVE); BLOOD, URINE NEGATIVE (NEGATIVE); COLOR,URINE YELLOW (YELLOW); LEUKOCYTE ESTERASE ,URINE NEGATIVE (NEGATIVE); NITRITE, URINE NEGATIVE (NEGATIVE); UGLUCOSE NEGATIVE (NEGATIVE)
--- NOTE | 2021-12-03 12:51 | NUR ---
BELONGINGS LIST COMPLETED
--- NOTE | 2021-12-03 12:55 | NUR ---
Patient will be admitted to care of [facility]. Admited to [facility]. Will go to room 11B. Belongings list completed. Report to NOLAN ROSS, REPORT GIVEN BY CHLOE HENDRICKS.
[2021-12-03 13:00] VITALS: BP 122/78
--- NOTE | 2021-12-03 13:00 | NUR ---
RECEIVED PT FROM ER NURSE FOR CONTINUITY OF CARE. PT IS WHEELED BY THE ER NURSE VIA GURNEY. PT ABLE TO AMBULATE FROM THE GURNEY TO HER BED WITHOUT DISTRESS NOTED. RESPIRATIONS EVEN AND UNLABORED AT ROOM AIR. PT IS A&O4, ABLE TO COMMUNICATE NEEDS. SKIN IS INTACT, WARM AND DRY TO TOUCH. IV SITE AT LEFT EJ 20G RUNNING NS 125 ML/HR. PT ORIENTED TO ROOM, UNIT AND ROUTINES. MRSA SWAB TAKEN. V/S TAKEN, STABLE. CALL LIGHT WITHIN REACH. SAFETY MEASURES IN PLACE. WILL CONTINUE TO MONITOR.
--- NOTE | 2021-12-03 13:00 | NUR ---
Patient's Plan of Care was discussed and reviewed with INTERNATIONAL EXCHANGE COORDINATOR: AMINATA BRUNO
[2021-12-03] MEDS ORDERED: diphenhydrAMINE 50 MG/ML VIAL IVP PRN ×3 (13:50→18:55)
--- NOTE | 2021-12-03 13:50 | NUR ---
PT COMPLAINT OF PAIN 8/10 ON HER ABDOMEN. PT REQUESTING BENADRYL TOGETHER WITH MORPHINE. PT STATED "MY VEINS ARE SO SMALL THAT MY IV SITE IS GETTING IRRITATED WHENEVER I TAKE MORPHINE". INFORMED DR. SAUL ORDERED BENADRYL. RN WILL ADMINISTER IVP MEDS.
[2021-12-03] MEDS: MORPHINE SULFATE 2 MG/ML SYR IVP PRN ×2 (15:09→18:33)
--- NOTE | 2021-12-03 15:09 | NUR ---
RUTHIE TAVARES ADMINISTERED PRN PAIN MED AND BENADRYL. PT IS A&O4. CALL LIGHT WITHIN REACH. SAFETY MEASURES IN PLACE. SIDE RAILS UP X1. PT STATED "I'M CLAUSTROPHOBIC. I WANT ONE SIDE RAIL DOWN." EXPLAINED THE RISK OF HAVING ONLY ONE SIDE RAIL UP. PT STATED "I'M NOT GOING TO FALL." WILL CONTINUE TO MONITOR.
--- NOTE | 2021-12-03 15:44 | NUR ---
TECHS AT BEDSIDE FOR US-KIDNEY.
[2021-12-03 16:00] VITALS: BP 119/81
--- NOTE | 2021-12-03 17:36 | NUR ---
IV SITE ON LEFT EJ SWOLLEN. REMOVED IV CATHETER. RN ATTEMPTED TO INSERT NEW IV LINE BUT NO SUCCESS. PICC LINE RECOMMENDED. WILL FOLLOW-UP.
--- NOTE | 2021-12-03 18:25 | NUR ---
RN ATTEMPTED NEW IV LINE. NEW IV LFA G22. PT TOLERATED WELL. PT COMPLAINT OF PAIN. RN WILL ADMINISTER PRN PAIN MED ORDERED.
--- NOTE | 2021-12-03 19:00 | NUR ---
BENADRYL PRN GIVEN PER DR'S ORDER.
--- NOTE | 2021-12-03 19:30 | NUR ---
ENDORSED PT TO MANUFACTURING ELECTRICIAN NURSE FOR CONTINUITY OF CARE. ALL NEEDS MET THROUGHOUT SHIFT. PT IS STABLE.
--- NOTE | 2021-12-03 19:30 | NUR ---
WHEN THE TIME OF ENDORSEMENT ROUNDS - WE FOUND OUT PT. IS ALREADY DRESSED UP W/ HER OWN CLOTHES - AND PACKING HER THINGS - SHE SAID SHE WANTS TO GO HOME - I EXPLAIN TO HER THE POSSIBLE CONSEQUENCES IF SHE GO HOME WITHOUT DISCHARGE ORDER FROM THE DOCTOR . I EXPLAIN TO HER ABOUT THE AMA AND SHE HAVE TO SIGN AMA DOCUMENT IF SHE REALLY WANTS TO GO HOME AGAINST MEDICAL ADVICE . - INSPITE OF ALL EXPLAINATION I EXPLAINED TO HER TO HER - PT STILL DECIDED TO GO HOME AMA - WILL INFORM DR. CARLSON ABOUT THIS MATTER .
--- NOTE | 2021-12-03 20:00 | NUR ---
INFORM DR. CARLSON - DR CARLSON RESPONDED " OK '.
--- NOTE | 2021-12-03 20:13 | NUR ---
SIGNED AMA WAIVER - REMOVE IV NEEDLE - NEEDLE INTACT , MIN. BLEEDING . INFORM PT IF SHE FEELS DOESNOT RIGHT - GO TO NEAREST ER - PT VERBALIZES UNDERSTANDING . PER PT. SHE WILL ADJUNCT PHLEBOTOMY INSTRUCTOR BY HER SISTER BY CAR .
--- NOTE | 2021-12-03 20:25 | NUR ---
DISCHARGED PT AMA . AMBULATORY , STABLE GAIT , W/ STABLE V/S BP 125/72 , RR 18 , 02 SAT 98 % , T 98.5 F
== END 2021-12-03 20:25 | disposition left against medical advice (07) | DRG 465 ==
LOC: MED 04:20 → MMU 11:50 → MTU 12:42
PROVIDERS: ADMIT Hospitalist; ATTEND Hospitalist
DX: N20.0 Calculus of kidney (principal); J45.901 Unspecified asthma with (acute) exacerbation; I10 Essential (primary) hypertension; Z20.822 Contact with and (suspected) exposure to COVID-19; M54.9 Dorsalgia, unspecified
CPT/HCPCS: 36415; 76770; 80048; 81003; 85025; 96374; 96375; 96376; 99285; J1200; J2270; Q0092

== ENCOUNTER 2021-12-05 14:06 | Emergency (ER) | payer OTHER ==
[~2021-12-05] VITALS: Ht 154.9 cm; Wt 74.8 kg
[2021-12-05 14:07] VITALS: BP 137/91
[2021-12-05] MEDS ORDERED: KETAMINE 10 MG/ML UD SYR **ER IVP ONE (14:30)
[2021-12-05] MEDS ORDERED: ONDANSETRON 4 MG/2 ML VIAL IVP ONE (14:30)
[2021-12-05] MEDS ORDERED: diphenhydrAMINE 50 MG/ML VIAL IVP ONE (14:50)
[2021-12-05] MEDS ORDERED: MORPHINE SULFATE 4 MG/ML SYR ONE (14:50)
[2021-12-05] MEDS ORDERED: MORPHINE SULFATE 4 MG/ML SYR IVP ONE ×2 (14:50→16:35)
[2021-12-05 15:19] LABS: BASOPHILS % (AUTO) 1.1 % (0.0-2.0); EOSINOPHILS % (AUTO) 0.6 % (0.0-4.0); HEMATOCRIT 30.6 % (36-48); HEMOGLOBIN 9.9 g/dL (12.0-16.0); LYMPHOCYTES % (AUTO) 28.7 % (20.5-51.1); MEAN CORPUSCULAR HEMOGLOBIN 26 pg (27-31); MEAN CORPUSCULAR HGB CONC 33 g/dL (33-37); MEAN CORPUSCULAR VOLUME 79.9 fL (80-94); MONOCYTES # (AUTO) 0.4 K/uL (0.8-1.0); MONOCYTES % (AUTO) 11.3 % (1.7-9.3); NEUTROPHILS % (AUTO) 58.3 % (42.2-75.2); PLATELET COUNT (AUTO) 280 K/uL (140-450); RED BLOOD CELL COUNT(AUTO) 3.83 MIL/uL (4.20-5.40); WHITE BLOOD COUNT (AUTO) 3.5 K/uL (4.8-10.8)
[2021-12-05 16:02] LABS: ALBUMIN 3.2 g/dL (3.4-5.0); ANION GAP 12.8 (8-16); CARBON DIOXIDE 26.7 mmol/L (21-32); CREATININE 0.7 mg/dL (0.6-1.3); POTASSIUM 3.5 mmol/L (3.5-5.1); TOTAL BILIRUBIN 0.1 mg/dL (0.0-1.0)
[2021-12-05] MEDS ORDERED: NACL 0.9% 1,000 ML IV ONE (16:15)
== END 2021-12-05 17:27 | disposition left against medical advice (07) ==
LOC: MED 14:06
DX: R10.13 Epigastric pain (principal); R31.9 Hematuria, unspecified; J45.909 Unspecified asthma, uncomplicated; I10 Essential (primary) hypertension; Z87.442 Personal history of urinary calculi; Z90.710 Acquired absence of both cervix and uterus; Z88.6 Allergy status to analgesic agent; Z79.1 Long term (current) use of non-steroidal anti-inflammatories (NSAID); Z88.8 Allergy status to other drugs, medicaments and biological substances; Z79.84 Long term (current) use of oral hypoglycemic drugs
CPT/HCPCS: 36415; 80053; 85025; 96374; 96375; 96376; 99284; J1200; J2270; J2405; J7030

== ENCOUNTER 2022-01-29 02:52 | Emergency (ER) | payer OTHER ==
[~2022-01-29] VITALS: Ht 154.9 cm; Wt 74.4 kg
[2022-01-29 02:59] VITALS: BP 123/89
--- NOTE | 2022-01-29 03:30 | NUR ---
PT IN BED 12, ERMD AT BEDSIDE.
--- NOTE | 2022-01-29 03:39 | NUR ---
42 YO F BIB SELF WITH C/C OF 10/10 LOWER ABD PAIN X1DAY. PT STATES THERE IS BLOOD IN HER URINE. +NAUSEA. DENIES VOMITING.PT STATES SHE HAS KIDNEY STONES. MURRAY JENKINS EXPLAINED TO PT WE NEED URINE TO CONFIRM KIDNEY STONES. PT STATES ONLY MORPHINE WORKS FOR PAIN CONTROL. PT REPEATEDLY STATED IF I GIVE URINE THEN WHAT, I EXPLAINED TO PT WE CAN USE THAT TO DETECT A KIDNEY STONE, PT KEPT SAYING THEN WHAT. MURRAY JENKINS SPOKE TO PT TO CLARIFY WHAT HE CAN DO AND GIVE PT FOR PAIN CONTROL. PT IS AGITATED.
--- NOTE | 2022-01-29 03:43 | NUR ---
PT IN RR FOR URINE COLLECTION
[2022-01-29] MEDS ORDERED: HYDROcodone/APAP 10/325 MG 1 TAB TAB ONE (03:55)
--- NOTE | 2022-01-29 03:57 | NUR ---
verbal order from to give norco 10/325mg for abd pain po.
--- NOTE | 2022-01-29 03:58 | NUR ---
pt refused norco, stated "i dont take norco the only thing that works is morphine, im just going to go".
--- NOTE | 2022-01-29 03:59 | NUR ---
rock made aware, is at bedside speaking to pt.
--- NOTE | 2022-01-29 04:04 | NUR ---
PT REFUSED CT. ERMD MADE AWARE.
[2022-01-29 04:09] VITALS: BP 123/89
--- NOTE | 2022-01-29 04:09 | NUR ---
PATIENT ELOPED FROM FACILITY. DISCHARGE INSTRUCTIONS NOT GIVEN TO PATIENT. DR. JENKINS NOTIFIED.
[2022-01-29] MEDS ORDERED: HYDROcodone/APAP 10/325 MG 1 TAB TAB PO STA (04:10)
== END 2022-01-29 04:09 | disposition left against medical advice (07) ==
LOC: MED 02:52
DX: R10.9 Unspecified abdominal pain (principal); I10 Essential (primary) hypertension; J45.909 Unspecified asthma, uncomplicated; F17.200 Nicotine dependence, unspecified, uncomplicated; F19.90 Other psychoactive substance use, unspecified, uncomplicated; Z87.442 Personal history of urinary calculi; Z79.1 Long term (current) use of non-steroidal anti-inflammatories (NSAID); Z79.82 Long term (current) use of aspirin; Z88.5 Allergy status to narcotic agent; Z88.8 Allergy status to other drugs, medicaments and biological substances; Z79.891 Long term (current) use of opiate analgesic; Z88.6 Allergy status to analgesic agent; Z79.84 Long term (current) use of oral hypoglycemic drugs
CPT/HCPCS: 81002; 99282

== ENCOUNTER 2022-02-05 10:31 | Emergency (ER) | payer OTHER ==
[~2022-02-05] VITALS: Ht 154.9 cm; Wt 74.5 kg
[2022-02-05 10:57] VITALS: BP 137/110
--- NOTE | 2022-02-05 11:08 | NUR ---
PT AMBULATED TO ER BED 3
--- NOTE | 2022-02-05 11:18 | NUR ---
PATIENT PRESENTS TO ED WITH LEFT FLANK PAIN . PT STATES . DENIES N/V/D; SKIN IS PINK/WARM/DRY; AAOX4 WITH EVEN AND STEADY GAIT; LUNGS CLEAR BL; HR EVEN AND REGULAR; PT DENIES ANY FEVER, CP, SOB, OR COUGH AT THIS TIME; PATIENT STATES PAIN OF 10/10 AT THIS TIME; VSS; PATIENT POSITIONED FOR COMFORT; HOB ELEVATED; BEDRAILS UP X2; BED DOWN. ER MD MADE AWARE OF PT STATUS.
[2022-02-05 12:03] LABS: BASOPHILS # (AUTO) 0.1 K/uL (0.00-0.22); BASOPHILS % (AUTO) 1.5 % (0.0-2.0); EOSINOPHILS % (AUTO) 0.5 % (0.0-4.0); HEMATOCRIT 32.2 % (36-48); HEMOGLOBIN 10.5 g/dL (12.0-16.0); LYMPHOCYTES # (AUTO) 1.5 K/uL (2.5-16.5); LYMPHOCYTES % (AUTO) 29.7 % (20.5-51.1); MEAN CORPUSCULAR HEMOGLOBIN 26 pg (27-31); MEAN CORPUSCULAR HGB CONC 33 g/dL (33-37); MEAN CORPUSCULAR VOLUME 79.5 fL (80-94); MONOCYTES # (AUTO) 0.4 K/uL (0.8-1.0); MONOCYTES % (AUTO) 8.3 % (1.7-9.3); PLATELET COUNT (AUTO) 290 K/uL (140-450); RED BLOOD CELL COUNT(AUTO) 4.05 MIL/uL (4.20-5.40); RED CELL DISTRIBUTION WIDTH 19.9 % (11.6-13.7)
[2022-02-05] MEDS ORDERED: MORPHINE SULFATE 2 MG/ML SYR IM STA (12:11)
[2022-02-05 12:18] LABS: ALBUMIN 3.6 g/dL (3.4-5.0); ANION GAP 12.3 (8-16); CARBON DIOXIDE 25.8 mmol/L (21-32); CREATININE 0.8 mg/dL (0.6-1.3); POTASSIUM 3.1 mmol/L (3.5-5.1); TOTAL BILIRUBIN 0.2 mg/dL (0.0-1.0)
--- NOTE | 2022-02-05 12:24 | NUR ---
PT REFUSING CT SCAN, DR KING MADE AWARE
[2022-02-05 12:46] LABS: APPEARANCE,URINE SL CLOUDY (CLEAR); BILIRUBIN,URINE NEGATIVE (NEGATIVE); BLOOD, URINE 3+ (NEGATIVE); COLOR,URINE YELLOW (YELLOW); LEUKOCYTE ESTERASE ,URINE 2+ (NEGATIVE); NITRITE, URINE POSITIVE (NEGATIVE); PH,URINE 6.5 (5.0-9.0); UGLUCOSE NEGATIVE (NEGATIVE)
--- NOTE | 2022-02-05 12:51 | NUR ---
PATIENT ELOPED FROM FACILITY. DISCHARGE INSTRUCTIONS NOT GIVEN TO PATIENT. DR. KING NOTIFIED.
[2022-02-05 14:10] LABS: RBC,URINE 11-20 (MOD) /HPF (0-5)
== END 2022-02-05 12:51 | disposition left against medical advice (07) ==
LOC: MED 10:31
DX: R10.9 Unspecified abdominal pain (principal); I10 Essential (primary) hypertension; J45.909 Unspecified asthma, uncomplicated; Z87.442 Personal history of urinary calculi; Z79.1 Long term (current) use of non-steroidal anti-inflammatories (NSAID); Z79.82 Long term (current) use of aspirin; Z88.5 Allergy status to narcotic agent; Z88.6 Allergy status to analgesic agent; Z88.8 Allergy status to other drugs, medicaments and biological substances; Z79.84 Long term (current) use of oral hypoglycemic drugs
CPT/HCPCS: 36415; 80053; 81001; 81025; 85025; 87086; 96372; 99283; J2270

== ENCOUNTER 2022-02-26 14:15 | Emergency (ER) | payer OTHER ==
[~2022-02-26] VITALS: Ht 162.6 cm; Wt 73.0 kg
[2022-02-26 14:29] VITALS: BP 138/80
--- NOTE | 2022-02-26 16:35 | NUR ---
pt ambulated to bed 09 with even and steady gait
[2022-02-26] MEDS: NACL 0.9% 1,000 ML IV ONE ×2 (16:40→16:48)
[2022-02-26] MEDS: ONDANSETRON 4 MG/2 ML VIAL IVP ONE ×2 (16:40→16:47)
[2022-02-26 17:00] VITALS: BP 141/75
--- NOTE | 2022-02-26 17:00 | NUR ---
WALKED IN C/O B/L FLANK PAIN MORE PROMINENT TO LEFT ONSET 2 DAYS. STATES HX KIDNEY STONE 2 YRS AGO. AAOX4, AMBULATORY, STATES 9/10 PAIN. PMH: ASTHMA, HTN ALLERGIES: NSAIDS, ASPIRIN, FLEXERIL, CODEINE, FENTANYL
[2022-02-26] MEDS ORDERED: MORPHINE SULFATE 4 MG/ML SYR IVP ONE (17:05)
--- NOTE | 2022-02-26 17:24 | NUR ---
PT UNABLE TO PROVIDE URINE. PT IS SLEEPING AT THIS TIME. WILL ATTEMPT AGAIN
--- NOTE | 2022-02-26 17:39 | NUR ---
UNABLE TO ESTABLISH IV ACCESS. ATTEMPTED MULTIPLE TIMES BUT UNSUCCESSFUL. ERMD AWARE. URINE COLLECTED. PT REFUSED NORCO PO, ERMD MADE AWARE.
--- NOTE | 2022-02-26 17:41 | NUR ---
PT REFUSED BLOOD DRAW, STATING SHE NEEDS PAIN MEDICINE. CELYD MADE AWARE.
[2022-02-26] MEDS ORDERED: LID5T TP (17:43)
[2022-02-26] MEDS ORDERED: ACET-10509 PO (17:43)
[2022-02-26 18:03] LABS: BILIRUBIN,URINE NEGATIVE (NEGATIVE); BLOOD, URINE 3+ (NEGATIVE); COLOR,URINE YELLOW (YELLOW); LEUKOCYTE ESTERASE ,URINE 3+ (NEGATIVE); NITRITE, URINE NEGATIVE (NEGATIVE); PH,URINE 6.5 (5.0-9.0); UGLUCOSE NEGATIVE (NEGATIVE)
--- NOTE | 2022-02-26 18:06 | NUR ---
PT DC WITHOUT PAPERWORK. PT INSISTED ON LEAVING WITHOUT PAPERWORK. ERMD AWARE. PT DID NOT SIGN DC PAPER. LEFT WITHOUT ANY CORPORATE STATISTICAL FINANCIAL ANALYST SUCH IV. NO MED ADMINISTERED.
[2022-02-26 18:07] LABS: APPEARANCE,URINE CLOUDY (CLEAR)
[2022-02-26 18:22] LABS: RBC,URINE TOO NUMEROUS TO COUN /HPF (0-5)
== END 2022-02-26 18:06 | disposition home or self-care (01) ==
LOC: MED 14:15
DX: R10.9 Unspecified abdominal pain (principal); J45.909 Unspecified asthma, uncomplicated; I10 Essential (primary) hypertension; Z76.5 Malingerer [conscious simulation]; Z79.899 Other long term (current) drug therapy; Z88.5 Allergy status to narcotic agent; Z88.6 Allergy status to analgesic agent; Z88.8 Allergy status to other drugs, medicaments and biological substances; Z88.1 Allergy status to other antibiotic agents
CPT/HCPCS: 81001; 81025; 87086; 99283; J2405

== ENCOUNTER 2022-03-18 03:45 | Emergency (ER) | payer OTHER ==
[~2022-03-18] VITALS: Ht 154.9 cm; Wt 74.8 kg
[~2022-03-18 03:45] MED LIST changes: +ACET-10509 PO; +LID5T TP
[2022-03-18 03:46] VITALS: BP 148/90
--- NOTE | 2022-03-18 04:41 | NUR ---
Called - no show in lobby or outside.
--- NOTE | 2022-03-18 05:11 | NUR ---
CALLED FOR EXAM, NO ANSWER. PT LWBS
--- NOTE | 2022-03-18 05:11 | NUR ---
PATIENT LEFT WITHOUT BEING SEEN BY DR. Berry. NO FURTHER CARE PROVIDED FOR PATIENT.
== END 2022-03-18 04:41 | disposition left against medical advice (07) ==
LOC: MED 03:45
DX: R10.9 Unspecified abdominal pain (principal); Z53.21 Procedure and treatment not carried out due to patient leaving prior to being seen by health care provider

== ENCOUNTER 2022-04-26 03:31 | Emergency (ER) | payer OTHER ==
[2022-04-26] MEDS ORDERED: diphenhydrAMINE 50 MG/ML VIAL IVP ONE (03:40)
[2022-04-26] MEDS ORDERED: KETOROLAC 30 MG/ML VIAL IVP ONE (03:40)
[2022-04-26] MEDS ORDERED: NACL 0.9% 1,000 ML IV ONE (03:40)
--- NOTE | 2022-04-26 03:41 | NUR ---
Dr. Braxton examining patient in triage room.
--- NOTE | 2022-04-26 03:45 | NUR ---
Patient refused blood drawn per termite control representative.
--- NOTE | 2022-04-26 03:51 | NUR ---
Patient refused to provide urine sample and refuse to CT scan, Dr. Braxton notified.
--- NOTE | 2022-04-26 04:00 | NUR ---
NO ANSWER WHEN CALLED FROM LOBBY FOR TRIAGE
--- NOTE | 2022-04-26 04:00 | NUR ---
PATIENT ELOPED FROM FACILITY. DISCHARGE INSTRUCTIONS NOT GIVEN TO PATIENT. DR. Braxton NOTIFIED.
== END 2022-04-26 04:00 | disposition left against medical advice (07) ==
LOC: MED 03:31
DX: R10.9 Unspecified abdominal pain (principal); J45.909 Unspecified asthma, uncomplicated; I10 Essential (primary) hypertension; Z88.5 Allergy status to narcotic agent; Z88.6 Allergy status to analgesic agent; Z79.899 Other long term (current) drug therapy; Z88.8 Allergy status to other drugs, medicaments and biological substances; Z87.442 Personal history of urinary calculi
CPT/HCPCS: 81025; 99281; 99282

== ENCOUNTER 2022-06-12 00:22 | Emergency (ER) | payer OTHER ==
[~2022-06-12] VITALS: Ht 154.9 cm; Wt 74.8 kg
[2022-06-12 00:36] VITALS: BP 152/105
--- NOTE | 2022-06-12 02:39 | NUR ---
PT CALLED IN LOBBY AND OUTSIDE WITH NO ANSWER.
[2022-06-12 02:40] LABS: APPEARANCE,URINE CLOUDY (CLEAR); BILIRUBIN,URINE NEGATIVE (NEGATIVE); BLOOD, URINE 3+ (NEGATIVE); LEUKOCYTE ESTERASE ,URINE 3+ (NEGATIVE); NITRITE, URINE POSITIVE (NEGATIVE); UGLUCOSE NEGATIVE (NEGATIVE)
[2022-06-12 02:41] LABS: COLOR,URINE SLIGHT BLOODY (YELLOW)
[2022-06-12 03:03] LABS: RBC,URINE TOO NUMEROUS TO COUN /HPF (0-5); WBC,URINE 16-25 (MOD) /HPF (0-5)
--- NOTE | 2022-06-12 03:24 | NUR ---
pt called by dr. barajas with no answer. pt lwbs
== END 2022-06-12 03:24 | disposition left against medical advice (07) ==
LOC: MED 00:22
DX: R10.9 Unspecified abdominal pain (principal); Z53.21 Procedure and treatment not carried out due to patient leaving prior to being seen by health care provider
CPT/HCPCS: 81001; 81025; 87086

== ENCOUNTER 2022-06-19 18:01 | Emergency (ER) | payer OTHER ==
--- NOTE | 2022-06-19 18:50 | NUR ---
CALL PATIENT TO TRIAGE NO RESPONSE. PATIENT LEFT WITHOUT BEING SEEN BY DR. PASTOR. NO FURTHER CARE PROVIDED FOR PATIENT.
--- NOTE | 2022-06-19 18:55 | NUR ---
CALLED FOR THE SECOND TIME NO RESPONSE
--- NOTE | 2022-06-19 19:00 | NUR ---
CALLED [phone]. NO ANSWERING.
== END 2022-06-19 18:50 | disposition left against medical advice (07) ==
LOC: MED 18:01
DX: N20.0 Calculus of kidney (principal); Z53.21 Procedure and treatment not carried out due to patient leaving prior to being seen by health care provider

== ENCOUNTER → 2022-07-20 | Emergency (ER) | payer OTHER ==
[~2022-07-20] VITALS: Ht 162.6 cm; Wt 76.2 kg
[2022-07-20 17:36] VITALS: BP 131/93
--- NOTE | 2022-07-20 19:20 | NUR ---
3 NO ANSWERS IN LOBBY WHEN CALLED
--- NOTE | 2022-07-20 19:20 | NUR ---
PATIENT ELOPED FROM FACILITY. DISCHARGE INSTRUCTIONS NOT GIVEN TO PATIENT. DR. CLAROS NOTIFIED.
== END | disposition home or self-care (01) ==
LOC: MED 17:27
DX: R10.9 Unspecified abdominal pain (principal); J45.909 Unspecified asthma, uncomplicated; I10 Essential (primary) hypertension; F41.9 Anxiety disorder, unspecified; Z79.899 Other long term (current) drug therapy; Z87.442 Personal history of urinary calculi; Z88.1 Allergy status to other antibiotic agents; Z88.5 Allergy status to narcotic agent; Z88.6 Allergy status to analgesic agent; Z88.8 Allergy status to other drugs, medicaments and biological substances
CPT/HCPCS: 99281

== ENCOUNTER 2022-09-16 05:30 | Emergency (ER) | payer OTHER ==
[~2022-09-16] VITALS: Ht 154.9 cm; Wt 72.6 kg
[2022-09-16 05:55] VITALS: BP 124/82
--- NOTE | 2022-09-16 05:58 | NUR ---
TO LOBBY A/W BED AMBULATORY
--- NOTE | 2022-09-16 06:22 | NUR ---
Dr. Hutchinson examining patient.
[2022-09-16 08:18] LABS: APPEARANCE,URINE CLEAR (CLEAR); BILIRUBIN,URINE NEGATIVE (NEGATIVE); BLOOD, URINE 3+ (NEGATIVE); COLOR,URINE YELLOW (YELLOW); LEUKOCYTE ESTERASE ,URINE 3+ (NEGATIVE); NITRITE, URINE NEGATIVE (NEGATIVE); PH,URINE 6.5 (5.0-9.0); UGLUCOSE NEGATIVE (NEGATIVE)
[2022-09-16 08:53] LABS: RBC,URINE 0-5 /HPF (0-5); WBC,URINE 0-5 /HPF (0-5)
[2022-09-16 08:54] VITALS: BP 124/82
--- NOTE | 2022-09-16 08:54 | NUR ---
PT STATED I WANT MORPHINE OR DILAUDIA. IF DR DON'T GIVE ME, I GONNA LEAVE. PATIENT ELOPED FROM FACILITY. DISCHARGE INSTRUCTIONS NOT GIVEN TO PATIENT. DR. COLE NOTIFIED.
--- NOTE | 2022-09-16 09:21 | NUR ---
PATIENT ELOPED FROM FACILITY. DISCHARGE INSTRUCTIONS NOT GIVEN TO PATIENT. DR. COLE NOTIFIED.
== END 2022-09-16 09:21 | disposition left against medical advice (07) ==
LOC: MED 05:30
DX: R10.9 Unspecified abdominal pain (principal); R31.9 Hematuria, unspecified; F11.20 Opioid dependence, uncomplicated; J45.909 Unspecified asthma, uncomplicated; I10 Essential (primary) hypertension; Z90.49 Acquired absence of other specified parts of digestive tract; Z79.899 Other long term (current) drug therapy; Z79.2 Long term (current) use of antibiotics; Z88.6 Allergy status to analgesic agent; Z88.8 Allergy status to other drugs, medicaments and biological substances; Z88.5 Allergy status to narcotic agent
CPT/HCPCS: 81001; 87086; 99283

== ENCOUNTER 2022-10-12 19:41 | Emergency (ER) | payer OTHER ==
[~2022-10-12] VITALS: Ht 154.9 cm; Wt 63.0 kg
[2022-10-12 19:45] VITALS: BP 131/83
--- NOTE | 2022-10-12 19:48 | NUR ---
TO LOBBY A/W BED AMBULATORY
[2022-10-12 20:50] LABS: BILIRUBIN,URINE NEGATIVE (NEGATIVE); BLOOD, URINE 3+ (NEGATIVE); COLOR,URINE YELLOW (YELLOW); LEUKOCYTE ESTERASE ,URINE 3+ (NEGATIVE); NITRITE, URINE NEGATIVE (NEGATIVE); UGLUCOSE NEGATIVE (NEGATIVE)
[2022-10-12 20:54] LABS: APPEARANCE,URINE CLOUDY (CLEAR)
[2022-10-12 21:03] LABS: RBC,URINE TOO NUMEROUS TO COUN /HPF (0-5); WBC,URINE 16-25 (MOD) /HPF (0-5)
--- NOTE | 2022-10-12 21:28 | NUR ---
PT IS NOT ALLOWING PHELBOTIMIST TO STICK PT FOR BLOOD DRAW, 2 PHLEMBOTAMIST AND NURSE WERE ABLE TO LOOK BUT NOT ALLOWED TO TRY FOR DRAW, MURRAY PASTOR MADE AWARE.
--- NOTE | 2022-10-12 21:32 | NUR ---
PT TO BED 5
--- NOTE | 2022-10-12 21:35 | NUR ---
INTERVIEWED PATIENT AT BEDSIDE; PATIENT REPORTS LEFT LOWER FLANK PAIN x2 DAYS. HAS HISTORY OF KIDNEY STONES ON THE LEFT SIDE AND WAS HOSPITALIZED 2 MONTHS AGO. CURRENTLY STATES THAT PAIN IS 10/10. PMH: ASTHMA, CHRONIC SINUSITIS, BIPOLAR DISORDER, PANIC ATTACKS, HTN ALLERGIES: TORADOL, REGLAN, COMPAZINE *STATES SHE CAN TAKE REGLAN IF GIVEN WITH BENADRYL
[2022-10-12] MEDS ORDERED: MORPHINE SULFATE 4 MG/ML SYR IM ONE (22:20)
[2022-10-12] MEDS ORDERED: diphenhydrAMINE 50 MG/ML VIAL IM ONE (22:20)
[2022-10-12] MEDS ORDERED: CEPH-588 PO (22:27)
[2022-10-12 22:44] VITALS: BP 131/83
--- NOTE | 2022-10-12 22:44 | NUR ---
"Patient discharged with v/s stable. Written and verbal after care instructions given and explained. Patient alert, oriented and verbalized understanding of instructions. Ambulatory with steady gait. All questions addressed prior to discharge. ID band removed. Patient advised to follow up with PMD. Rx of CEPHALEXIN given. Patient educated on indication of medication including possible reaction and side effects. Opportunity to ask questions provided and answered. DX: URINARY TRACT INFECTION, ADULT | CHRONIC PAIN, ADULT | FLANK PAIN, ADULT"
== END 2022-10-12 22:44 | disposition home or self-care (01) ==
LOC: MED 19:41
DX: N39.0 Urinary tract infection, site not specified (principal); G89.29 Other chronic pain; M54.9 Dorsalgia, unspecified; J45.909 Unspecified asthma, uncomplicated; I10 Essential (primary) hypertension; Z87.448 Personal history of other diseases of urinary system; F31.0 Bipolar disorder, current episode hypomanic; Z79.899 Other long term (current) drug therapy; Z79.2 Long term (current) use of antibiotics; Z88.6 Allergy status to analgesic agent; Z88.8 Allergy status to other drugs, medicaments and biological substances; Z88.5 Allergy status to narcotic agent
CPT/HCPCS: 81001; 81025; 87086; 96372; 99284; J1200; J2270

== ENCOUNTER 2022-10-21 06:15 | Emergency (ER) | payer OTHER ==
[~2022-10-21] VITALS: Ht 154.9 cm; Wt 63.5 kg
[~2022-10-21 06:15] MED LIST changes: +CEPH-588 PO
[2022-10-21 06:32] VITALS: BP 131/104
--- NOTE | 2022-10-21 06:35 | NUR ---
pt to bed 09.
--- NOTE | 2022-10-21 07:01 | NUR ---
ERMD AT BEDSIDE
[2022-10-21] MEDS: MORPHINE SULFATE 4 MG/ML SYR IM ONE (07:23)
[2022-10-21] MEDS: ONDANSETRON 4 MG ODT PO ONE (07:24)
--- NOTE | 2022-10-21 07:30 | NUR ---
PT WAS MEDICATED WIHT MORPHINE AND ZOFRAN PER MD ORDER.
[2022-10-21 07:53] LABS: BASOPHILS # (AUTO) 0.1 K/uL (0.00-0.22); BASOPHILS % (AUTO) 1.4 % (0.0-2.0); EOSINOPHILS % (AUTO) 0.6 % (0.0-4.0); HEMATOCRIT 32.1 % (36-48); HEMOGLOBIN 10.3 g/dL (12.0-16.0); LYMPHOCYTES # (AUTO) 1.4 K/uL (2.5-16.5); LYMPHOCYTES % (AUTO) 25.5 % (20.5-51.1); MEAN CORPUSCULAR HEMOGLOBIN 27 pg (27-31); MEAN CORPUSCULAR HGB CONC 32 g/dL (33-37); MEAN CORPUSCULAR VOLUME 82.8 fL (80-94); MONOCYTES # (AUTO) 0.6 K/uL (0.8-1.0); MONOCYTES % (AUTO) 10.8 % (1.7-9.3); NEUTROPHILS # (AUTO) 3.4 K/uL (1.8-7.7); NEUTROPHILS % (AUTO) 61.7 % (42.2-75.2); PLATELET COUNT (AUTO) 246 K/uL (140-450); RED BLOOD CELL COUNT(AUTO) 3.87 MIL/uL (4.20-5.40); RED CELL DISTRIBUTION WIDTH 18.6 % (11.6-13.7); WHITE BLOOD COUNT (AUTO) 5.5 K/uL (4.8-10.8)
[2022-10-21 08:19] LABS: ALBUMIN 3.4 g/dL (3.4-5.0); ANION GAP 13.6 (8-16); CARBON DIOXIDE 23.9 mmol/L (21-32); CREATININE 0.9 mg/dL (0.6-1.3); POTASSIUM 3.5 mmol/L (3.5-5.1); TOTAL BILIRUBIN 0.2 mg/dL (0.0-1.0)
[2022-10-21 08:34] LABS: BILIRUBIN,URINE NEGATIVE (NEGATIVE); BLOOD, URINE 3+ (NEGATIVE); LEUKOCYTE ESTERASE ,URINE 3+ (NEGATIVE); NITRITE, URINE NEGATIVE (NEGATIVE); PH,URINE 6.5 (5.0-9.0); UGLUCOSE NEGATIVE (NEGATIVE)
[2022-10-21] MEDS ORDERED: CEPH-588 PO (09:11)
[2022-10-21 09:14] LABS: RBC,URINE 20-50 /HPF (0-5); WBC,URINE 16-25 (MOD) /HPF (0-5)
[2022-10-21 09:15] LABS: APPEARANCE,URINE HAZY (CLEAR); COLOR,URINE AMBER (YELLOW)
--- NOTE | 2022-10-21 09:27 | NUR ---
Patient discharged with v/s stable. Written and verbal after care instructions given and explained. Patient alert, oriented and verbalized understanding of instructions. Ambulatory with steady gait. All questions addressed prior to discharge. ID band removed. Patient advised to follow up with PMD. Rx of CEPHLAX given. Patient educated on indication of medication including possible reaction and side effects. Opportunity to ask questions provided and answered.
[2022-10-21 09:28] VITALS: BP 134/75
== END 2022-10-21 09:27 | disposition home or self-care (01) ==
LOC: MED 06:15
DX: N39.0 Urinary tract infection, site not specified (principal); J45.909 Unspecified asthma, uncomplicated; I10 Essential (primary) hypertension; Z87.448 Personal history of other diseases of urinary system; Z79.899 Other long term (current) drug therapy; Z79.2 Long term (current) use of antibiotics; Z88.6 Allergy status to analgesic agent; Z88.5 Allergy status to narcotic agent; Z88.8 Allergy status to other drugs, medicaments and biological substances
CPT/HCPCS: 36415; 76770; 80053; 81001; 83690; 85025; 87086; 96372; 99285; J2270; Q0092; Q0162

== ENCOUNTER 2022-10-27 04:35 | Emergency (ER) | payer OTHER ==
[~2022-10-27] VITALS: Ht 185.4 cm; Wt 73.9 kg
--- NOTE | 2022-10-27 04:50 | NUR ---
PT AMBULATED TO BED #9
[2022-10-27 05:02] VITALS: BP 110/74
--- NOTE | 2022-10-27 06:08 | NUR ---
Dr. Barton by bedside evaluating patient.
[2022-10-27] MEDS ORDERED: SULF-58 PO (06:17)
[2022-10-27 06:26] VITALS: BP 110/74
--- NOTE | 2022-10-27 06:26 | NUR ---
Patient discharged with v/s stable. Written and verbal after care instructions given and explained. New rx bactrim. Patient verbalized understanding. Ambulatory with steady gait. All questions addressed prior to discharge. Advised to follow up with PMD.
== END 2022-10-27 06:26 | disposition home or self-care (01) ==
LOC: MED 04:35
DX: N39.0 Urinary tract infection, site not specified (principal); G89.29 Other chronic pain; M79.605 Pain in left leg; J45.909 Unspecified asthma, uncomplicated; I10 Essential (primary) hypertension; Z87.448 Personal history of other diseases of urinary system; Z90.49 Acquired absence of other specified parts of digestive tract; Z79.899 Other long term (current) drug therapy; Z79.2 Long term (current) use of antibiotics; Z88.6 Allergy status to analgesic agent; Z88.5 Allergy status to narcotic agent; Z88.8 Allergy status to other drugs, medicaments and biological substances
CPT/HCPCS: 81025; 99283

== ENCOUNTER 2023-01-13 10:20 | Emergency (ER) | payer OTHER ==
[~2023-01-13] VITALS: Ht 157.5 cm; Wt 63.5 kg
[~2023-01-13 10:20] MED LIST changes: +SULF-58 PO
[2023-01-13 10:56] VITALS: BP 132/99; PULSE 94; RESP 20; TEMP 98.6; O2SAT 98
[2023-01-13] MEDS ORDERED: MORPHINE SULFATE 4 MG/ML SYR IM ONE (11:05)
--- NOTE | 2023-01-13 11:40 | NUR ---
42 Y/O FEMALE BIB SELF, PATIENT PRESENTS TO ED WITH C/O LOWER BACK, SPECIFIC TO BL FLANK PAIN. PT STATES SHE HAS KIDNEY STONES AND STATES HER PAIN WORSENED THIS MORNING. DENIES N/V/D; SKIN IS PINK/WARM/DRY; AAOX4 WITH EVEN AND STEADY GAIT; LUNGS CLEAR BL; PT DENIES ANY FEVER, CP, SOB, OR COUGH AT THIS TIME; PATIENT STATES PAIN OF 10/10 AT THIS TIME; PATIENT POSITIONED FOR COMFORT; HOB ELEVATED; BEDRAILS UP X2; BED DOWN. ER MD MADE AWARE OF PT STATUS. CALL LIGHT WITHIN REACH. PMH: ASTHMA, HTN, RENAL DISEASE (KIDNEY STONES) ALLERGY: SEE LIST
--- NOTE | 2023-01-13 11:45 | NUR ---
PT STATES SHE IS REFUSING BLOOD WORK AT THIS TIME BECAUSE SHE STATES THAT "EVERY TIME I HAVE LAB ORDERS, THEY HAVE TO GET ME WITH AN ULTRASOUND IV AND I GET ALL MY MEDICATIONS THROUGH IV." MADE AWARE. STATES WE WILL DO US IV FOR ONLY LAB WORK.
[2023-01-13 11:49] LABS: BILIRUBIN,URINE NEGATIVE (NEGATIVE); BLOOD, URINE 3+ (NEGATIVE); LEUKOCYTE ESTERASE ,URINE 1+ (NEGATIVE); NITRITE, URINE NEGATIVE (NEGATIVE); UGLUCOSE NEGATIVE (NEGATIVE)
[2023-01-13 11:56] LABS: APPEARANCE,URINE HAZY (CLEAR); COLOR,URINE BLOODY (YELLOW)
--- NOTE | 2023-01-13 11:56 | NUR ---
PT STATES SHE DOES NOT HAVE AN ALLERGY TO MORPHINE, STATES AFTER SHE GETS INJECTION, THE SITE BECOMES ITCHY. PT STATES SHE ONLY WANTS HER BENADRYL IV BECAUSE PO DOES NOT WORK. MD STATES TO KEEP STANDING ORDERS. PER PATIENT, STATES SHE IS REFUSING THE BENADRYL PO AND STATES SHE WILL TAKE THE IM MORPHINE. PT STATES "THE DOES ISNT HIGH ENOUGH, THE ONLY THING THAT WORKS FOR ME IS DILAUDID." PROGRAMMING ENGINEER AND MD NOTIFIED ABOUT PT STATUS.
[2023-01-13 11:57] LABS: RBC,URINE 11-20 (MOD) /HPF (0-5)
[2023-01-13 12:04] VITALS: BP 132/99; PULSE 94; RESP 20; TEMP 98.6; O2SAT 98
--- NOTE | 2023-01-13 12:04 | NUR ---
PT REFUSING CT SCAN AT THIS TIME. SPOKE WITH PT, STATES SHE IS VERY UNHAPPY WITH MD AND WOULD LIKE TO LEAVE WITHOUT CONTINUATION OF CARE. PT ELOPED AT THIS TIME.
== END 2023-01-13 12:04 | disposition left against medical advice (07) ==
LOC: MED 10:20
DX: R10.9 Unspecified abdominal pain (principal); J45.909 Unspecified asthma, uncomplicated; I10 Essential (primary) hypertension; Z87.442 Personal history of urinary calculi; Z79.899 Other long term (current) drug therapy; Z88.8 Allergy status to other drugs, medicaments and biological substances; Z88.1 Allergy status to other antibiotic agents; Z88.5 Allergy status to narcotic agent; Z88.6 Allergy status to analgesic agent
CPT/HCPCS: 81001; 81025; 87086; 96372; 99283; J2270

== ENCOUNTER 2023-02-04 07:10 | Emergency (ER) | payer OTHER ==
[~2023-02-04] VITALS: Ht 154.9 cm; Wt 78.0 kg
[2023-02-04 07:38] VITALS: BP 146/101; PULSE 82; RESP 18; TEMP 98; O2SAT 99
--- NOTE | 2023-02-04 07:54 | NUR ---
LAB AT BS DRAWING PT FOR LABS AND BLOOD CULTURES.
--- NOTE | 2023-02-04 07:59 | NUR ---
SOCKS GIVEN TO PT. PT OOB TO THE RESTROOM TO OBTAIN UA SAMPLE.
[2023-02-04 08:08] LABS: BASOPHILS # (AUTO) 0.1 K/uL (0.00-0.22); BASOPHILS % (AUTO) 1.2 % (0.0-2.0); EOSINOPHILS % (AUTO) 0.3 % (0.0-4.0); HEMATOCRIT 29.2 % (36-48); HEMOGLOBIN 9.6 g/dL (12.0-16.0); LYMPHOCYTES # (AUTO) 1.3 K/uL (2.5-16.5); LYMPHOCYTES % (AUTO) 27.2 % (20.5-51.1); MEAN CORPUSCULAR HEMOGLOBIN 26 pg (27-31); MEAN CORPUSCULAR HGB CONC 33 g/dL (33-37); MEAN CORPUSCULAR VOLUME 79.7 fL (80-94); MONOCYTES # (AUTO) 0.6 K/uL (0.8-1.0); MONOCYTES % (AUTO) 13.5 % (1.7-9.3); NEUTROPHILS # (AUTO) 2.7 K/uL (1.8-7.7); NEUTROPHILS % (AUTO) 57.8 % (42.2-75.2); PLATELET COUNT (AUTO) 296 K/uL (140-450); RED BLOOD CELL COUNT(AUTO) 3.66 MIL/uL (4.20-5.40); RED CELL DISTRIBUTION WIDTH 18.3 % (11.6-13.7); WHITE BLOOD COUNT (AUTO) 4.7 K/uL (4.8-10.8)
[2023-02-04 08:20] LABS: APPEARANCE,URINE CLEAR (CLEAR); BILIRUBIN,URINE NEGATIVE (NEGATIVE); BLOOD, URINE 3+ (NEGATIVE); COLOR,URINE YELLOW (YELLOW); LEUKOCYTE ESTERASE ,URINE 3+ (NEGATIVE); NITRITE, URINE POSITIVE (NEGATIVE); UGLUCOSE NEGATIVE (NEGATIVE)
[2023-02-04 08:22] LABS: ALBUMIN 3.5 g/dL (3.4-5.0); ANION GAP 13.6 (8-16); CARBON DIOXIDE 21.5 mmol/L (21-32); CREATININE 0.7 mg/dL (0.6-1.3); POTASSIUM 3.1 mmol/L (3.5-5.1); TOTAL BILIRUBIN 0.1 mg/dL (0.0-1.0)
--- NOTE | 2023-02-04 08:24 | NUR ---
MD. COLE AT EVALUATING THE PT.
[2023-02-04 08:30] LABS: RBC,URINE >100 /HPF (0-5)
[2023-02-04] MEDS ORDERED: POTASSIUM CHLORIDE 10 MEQ TABER PO ONE (08:30)
[2023-02-04] MEDS ORDERED: cephALEXin 500 MG CAP PO ONE (08:35)
--- NOTE | 2023-02-04 08:39 | NUR ---
ATTEMPTING TO MEDICATE THE PT. PT CURRENTLY TALKING ON PHONE. PT STATED, "I WILL NOT TAKE THE POTASSIUM NOR THE ANTIBIOTIC UNTIL HE GIVES ME PAIN MEDICINE BECAUSE I AM IN PAIN." EXPLAINED TO THE PT ON THE IMPORTANCE OF TAKING THE ANTIBIOTIC AND POTASSIUM. PT STATED, "I WILL NOT TAKE IT UNLESS I GET MY PAIN MEDICATION." SHE STATED, "THE DOCTOR NEEDS TO COME TALK TO ME." WILL INFORM MD THAT THE PT IS REQUESTING TO SPEAK TO HIM.
[2023-02-04] MEDS ORDERED: MORPHINE SULFATE 2 MG/ML SYR IM ONE (08:50)
--- NOTE | 2023-02-04 09:01 | NUR ---
PT WAS MEDICATED WITH MORPHINE IM ORDERED. PT TALKING ON HER CELL PHONE ATTEMPTING TO ARRANGE TRANSPORT TO ANOTHER FACILITY. LIBRARY CUSTOMER SERVICE CLERK WAITING FOR PT TO CONCLUDE CONVERSATION TO TAKE THE PT TO CT. CT-SCAN TECH AT TO TAKE THE PT TO CT.
--- NOTE | 2023-02-04 09:04 | NUR ---
PT TAKEN OFF UNIT TO CT-SCAN.
[2023-02-04] MEDS ORDERED: CEPH-588 PO (09:57)
[2023-02-04] MEDS ORDERED: PYR100 PO (09:57)
--- NOTE | 2023-02-04 10:05 | NUR ---
Patient discharged with v/s stable. Written and verbal after care instructions given and explained. Copies of CT results were provided. Patient alert, oriented and verbalized understanding of instructions. Ambulatory with steady gait. MD Hutchinson spoke to thept and let her know that her CT-Scan is negative for kidney stones. Pt requested Soma for siatica. informed pt that he was going to have her PMD manage her siatica. All questions addressed prior to discharge. ID band removed. Patient advised to follow up with PMD. Rx of Keflex and Pyridium given. Patient educated on indication of medication including possible reaction and side effects. Opportunity to ask questions provided and answered. Pt ambulated out in stable condtion. Ride awaiting pt.
[2023-02-04 10:21] VITALS: BP 138/91; PULSE 79; RESP 18; TEMP 98.1; O2SAT 99
== END 2023-02-04 10:05 | disposition home or self-care (01) ==
LOC: MED 07:10
DX: N39.0 Urinary tract infection, site not specified (principal); E87.6 Hypokalemia; I10 Essential (primary) hypertension; D64.9 Anemia, unspecified; J45.909 Unspecified asthma, uncomplicated; Z88.5 Allergy status to narcotic agent; Z88.6 Allergy status to analgesic agent; Z88.8 Allergy status to other drugs, medicaments and biological substances; Z88.1 Allergy status to other antibiotic agents; Z79.899 Other long term (current) drug therapy; Z87.442 Personal history of urinary calculi; Z90.49 Acquired absence of other specified parts of digestive tract
CPT/HCPCS: 36415; 74176; 80053; 81001; 81025; 83690; 85025; 87086; 99285; J2270; 96372

== ENCOUNTER 2023-11-24 15:22 | Emergency (ER) | payer OTHER ==
[~2023-11-24] VITALS: Ht 154.9 cm; Wt 81.6 kg
[~2023-11-24 15:22] MED LIST changes: -FLO110 IH; +FLUT12AE5 IH; +PYR100 PO
[2023-11-24 15:45] VITALS: BP 138/114; PULSE 105; RESP 22; TEMP 97.8; O2SAT 98
[2023-11-24] MEDS: ONDANSETRON 4 MG ODT PO ONE (16:15)
[2023-11-24 16:46] LABS: APPEARANCE,URINE CLEAR (CLEAR); COLOR,URINE YELLOW (YELLOW)
[2023-11-24 16:47] LABS: BILIRUBIN,URINE NEGATIVE (NEGATIVE); BLOOD, URINE 3+ (NEGATIVE); LEUKOCYTE ESTERASE ,URINE 3+ (NEGATIVE); NITRITE, URINE POSITIVE (NEGATIVE); PROTEIN,URINE TRACE (NEGATIVE); UGLUCOSE NEGATIVE (NEGATIVE); UROBILINOGEN,URINE 0.2 EU/dL (0.2 - 1)
[2023-11-24 16:49] LABS: RBC,URINE TOO NUMEROUS TO COUN /HPF (0-5)
[2023-11-24 16:50] LABS: BACTERIA,URINE FEW /HPF (None Seen); SQUAMOUS EPITHELIAL CELL,UR 4-10 (MOD) /LPF (0-3 (FEW))
[2023-11-24 16:51] LABS: MUCUS,URINE None Seen /LPF (None Seen)
[2023-11-24] MEDS: MORPHINE SULFATE 10 MG/ML VIAL IM ONE (16:52)
[2023-11-24 17:52] VITALS: BP 138/88; PULSE 93; RESP 12; TEMP 99; O2SAT 99
[2023-11-24] MEDS ORDERED: PHEN-1877 PO (17:57)
[2023-11-24] MEDS ORDERED: CEPH-588 PO (17:57)
== END 2023-11-24 18:02 | disposition home or self-care (01) ==
LOC: MED 15:22
DX: N39.0 Urinary tract infection, site not specified (principal); J45.909 Unspecified asthma, uncomplicated; Z87.442 Personal history of urinary calculi; Z79.1 Long term (current) use of non-steroidal anti-inflammatories (NSAID); Z79.2 Long term (current) use of antibiotics; Z79.899 Other long term (current) drug therapy; Z88.5 Allergy status to narcotic agent; Z88.6 Allergy status to analgesic agent; Z88.8 Allergy status to other drugs, medicaments and biological substances
CPT/HCPCS: 74176; 81001; 87086; 96372; 99285; J2270; Q0162

== ENCOUNTER 2023-12-22 18:34 | Emergency (ER) | payer OTHER ==
[~2023-12-22] VITALS: Ht 154.9 cm; Wt 95.3 kg
[~2023-12-22 18:34] MED LIST changes: +PHEN-1877 PO
[2023-12-22 18:43] VITALS: BP 152/110; PULSE 109; RESP 20; TEMP 98.8; O2SAT 99
[2023-12-22] MEDS: methocarbamoL 500 MG TAB PO ONE (19:40)
[2023-12-22] MEDS: diazePAM 5 MG TAB PO ONE (19:41)
[2023-12-22] MEDS: ACETAMINOPHEN EXTRA STRENGTH 500 MG TAB PO ONE (19:42)
[2023-12-22 19:45] VITALS: O2SAT 99
[2023-12-22 21:18] LABS: APPEARANCE,URINE CLOUDY (CLEAR); BILIRUBIN,URINE NEGATIVE (NEGATIVE); BLOOD, URINE 3+ (NEGATIVE); COLOR,URINE BROWN (YELLOW); LEUKOCYTE ESTERASE ,URINE 2+ (NEGATIVE); NITRITE, URINE NEGATIVE (NEGATIVE); PH,URINE 6.5 (5.0-9.0); PROTEIN,URINE TRACE (NEGATIVE); UGLUCOSE NEGATIVE (NEGATIVE); UROBILINOGEN,URINE 0.2 EU/dL (0.2 - 1)
[2023-12-22 21:34] LABS: BACTERIA,URINE 10-30 (MOD) /HPF (None Seen); RBC,URINE 20-50 /HPF (0-5); SQUAMOUS EPITHELIAL CELL,UR 0-3 (FEW) /LPF (0-3 (FEW))
[2023-12-22] MEDS ORDERED: CEPH-588 PO (22:05)
[2023-12-22] MEDS: MORPHINE SULFATE 4 MG/ML SYR IM ONE (22:16)
[2023-12-22] MEDS: cefTRIAXone 1,000 MG in LIDOCAINE MPF 1% 2.1 ML IM ONE (22:17)
== END 2023-12-22 22:21 | disposition home or self-care (01) ==
LOC: MED 18:34
DX: N39.0 Urinary tract infection, site not specified (principal); R19.7 Diarrhea, unspecified; R11.0 Nausea; M54.6 Pain in thoracic spine; J45.909 Unspecified asthma, uncomplicated; Z87.442 Personal history of urinary calculi; Z79.1 Long term (current) use of non-steroidal anti-inflammatories (NSAID); Z79.2 Long term (current) use of antibiotics; Z79.899 Other long term (current) drug therapy; Z88.5 Allergy status to narcotic agent; Z88.6 Allergy status to analgesic agent; Z88.8 Allergy status to other drugs, medicaments and biological substances
CPT/HCPCS: 81001; 81025; 87086; 96372; 99283; J2270

== ENCOUNTER 2024-02-16 15:40 | Emergency (ER) | payer OTHER ==
[~2024-02-16] VITALS: Ht 154.9 cm; Wt 77.1 kg
[2024-02-16 15:47] VITALS: BP 133/91; PULSE 110; RESP 16; TEMP 98.7; O2SAT 99
[2024-02-16 16:56] LABS: CALCIUM 9.1 mg/dL (8.5-10.1); CARBON DIOXIDE 22.3 mmol/L (21-32); CREATININE 0.8 mg/dL (0.6-1.3); POTASSIUM 3.3 mmol/L (3.5-5.1)
[2024-02-16 17:28] LABS: ALANINE AMINOTRANSFERASE 45 U/L (12-78); ALBUMIN 3.4 g/dL (3.4-5.0); ALKALINE PHOSPHATASE 89 U/L (50-136); ASPARTATE AMINOTRANSFERASE 31 U/L (15-37); BILIRUBIN,DIRECT 0.1 mg/dL (0.0-0.3); LIPASE 32 U/L (16-77); TOTAL BILIRUBIN 0.3 mg/dL (0.0-1.0); TOTAL PROTEIN, SERUM 7.3 g/dL (6.4-8.2)
[2024-02-16] MEDS: NACL 0.9% 1,000 ML IV ONE (17:35)
[2024-02-16] MEDS: ONDANSETRON 4 MG/2 ML VIAL IVP ONE (18:04)
[2024-02-16] MEDS: MORPHINE SULFATE 4 MG/ML SYR IVP ONE ×2 (18:06→20:21)
[2024-02-16 18:52] LABS: BASOPHILS % (AUTO) 0.5 % (0.0-2.0); EOSINOPHILS % (AUTO) 0.4 % (0.0-4.0); HEMATOCRIT 30.5 % (36-48); HEMOGLOBIN 9.4 g/dL (12.0-16.0); LYMPHOCYTES # (AUTO) 0.8 K/uL (2.5-16.5); LYMPHOCYTES % (AUTO) 17.3 % (20.5-51.1); MEAN CORPUSCULAR HEMOGLOBIN 22 pg (27-31); MEAN CORPUSCULAR HGB CONC 31 g/dL (33-37); MEAN CORPUSCULAR VOLUME 70.9 fL (80-94); MONOCYTES # (AUTO) 0.5 K/uL (0.8-1.0); MONOCYTES % (AUTO) 10.8 % (1.7-9.3); NEUTROPHILS # (AUTO) 3.1 K/uL (1.8-7.7); PLATELET COUNT (AUTO) 267 K/uL (140-450); RED CELL DISTRIBUTION WIDTH 21.7 % (11.6-13.7); WHITE BLOOD COUNT (AUTO) 4.4 K/uL (4.8-10.8)
[2024-02-16] MEDS ORDERED: MORPHINE SULFATE 4 MG/ML SYR ONE (20:19)
[2024-02-16 21:04] LABS: BILIRUBIN,URINE NEGATIVE (NEGATIVE); BLOOD, URINE 3+ (NEGATIVE); COLOR,URINE YELLOW (YELLOW); LEUKOCYTE ESTERASE ,URINE 2+ (NEGATIVE); NITRITE, URINE POSITIVE (NEGATIVE); PROTEIN,URINE TRACE (NEGATIVE); UGLUCOSE NEGATIVE (NEGATIVE); UROBILINOGEN,URINE 0.2 EU/dL (0.2 - 1)
[2024-02-16 21:06] LABS: APPEARANCE,URINE SLIGHTLY CLOUDY (CLEAR)
[2024-02-16 21:07] LABS: RBC,URINE 20-50 /HPF (0-5)
[2024-02-16 21:08] LABS: BACTERIA,URINE 2+ /HPF (None Seen); MUCUS,URINE None Seen /LPF (None Seen); SQUAMOUS EPITHELIAL CELL,UR 4-10 (MOD) /LPF (0-3 (FEW))
[2024-02-16] MEDS ORDERED: ACET-10509 PO (21:50)
[2024-02-16 22:33] VITALS: BP 142/74; PULSE 66; RESP 18; O2SAT 95
== END 2024-02-16 22:33 | disposition home or self-care (01) ==
LOC: MED 15:40
DX: N39.0 Urinary tract infection, site not specified (principal); Z90.49 Acquired absence of other specified parts of digestive tract; Z90.710 Acquired absence of both cervix and uterus; Z79.899 Other long term (current) drug therapy; Z88.6 Allergy status to analgesic agent; Z88.5 Allergy status to narcotic agent; Z88.8 Allergy status to other drugs, medicaments and biological substances
CPT/HCPCS: 36415; 74176; 80048; 80076; 81001; 81025; 82948; 83690; 84484; 84703; 85025; 87086; 93005; 96361; 96374; 96375; 96376; 99285; J2270; J2405; J7030

== ENCOUNTER 2024-03-14 16:41 | Emergency (ER) | payer OTHER ==
[~2024-03-14] VITALS: Ht 165.1 cm; Wt 77.1 kg
[~2024-03-14 16:41] MED LIST changes: -ACET-10509 PO; +ACET500T99 PO
--- NOTE | 2024-03-14 16:47 | NUR ---
BIBA BLS TO ER BED 3
[2024-03-14 17:09] VITALS: BP 117/73; PULSE 97; RESP 18; TEMP 99.6; O2SAT 97
--- NOTE | 2024-03-14 17:45 | NUR ---
UA CUP PROVIDED TO THE PT. PT STATED, SHE IS UNALBE TO PROVIDE UA SAMPLE AT THIS TIME.
--- NOTE | 2024-03-14 18:04 | NUR ---
CONTINUE TO AWAIT FOR UA SAMPLE.
--- NOTE | 2024-03-14 18:10 | NUR ---
PT REFUSING IV INSERTION AT THIS TIME. PT YELLING FOR HELP, BUT REFUSING UA TO GIVE UA SAMPLE AND IV INSERTION.
--- NOTE | 2024-03-14 18:30 | NUR ---
PT LAYED DOWN ON THE FLOOR. PT INFORMED THAT SHE NEEDED RETURN BACK TO BED.
--- NOTE | 2024-03-14 18:37 | NUR ---
EDUCATED THE PT ON THE IMPORTANCE OF OBTAINING UA SAMPLE TO R/O INFECTION.
--- NOTE | 2024-03-14 19:10 | NUR ---
PT STATED THAT SHE WANTS TO LAY ON THE FLOOR. PT EDUCATED THAT THE FLOOR IS DIRTY AND THAT SHE NEEDS TO REMAIN IN BED.
--- NOTE | 2024-03-14 19:25 | NUR ---
PT ENDORSED TO YAQUELIN HENDRICKS IN STABLE CONDITION.
--- NOTE | 2024-03-14 20:00 | NUR ---
PT WANDERS IN AND OUT OF ROOM. REFUSES NORCO STATES MORPHINE AND DILAUDID ONLY WORKS.
[2024-03-14 20:13] LABS: BILIRUBIN,URINE NEGATIVE (NEGATIVE); BLOOD, URINE 3+ (NEGATIVE); LEUKOCYTE ESTERASE ,URINE 3+ (NEGATIVE); NITRITE, URINE NEGATIVE (NEGATIVE); PH,URINE 6.5 (5.0-9.0); PROTEIN,URINE TRACE (NEGATIVE); UGLUCOSE NEGATIVE (NEGATIVE); UROBILINOGEN,URINE 0.2 EU/dL (0.2 - 1)
[2024-03-14 20:15] LABS: APPEARANCE,URINE CLOUDY (CLEAR); COLOR,URINE AMBER (YELLOW)
[2024-03-14 20:19] LABS: BACTERIA,URINE 10-30 (MOD) /HPF (None Seen); RBC,URINE 50-80 /HPF (0-5); WBC,URINE 16-25 (MOD) /HPF (0-5)
[2024-03-14 20:20] LABS: SQUAMOUS EPITHELIAL CELL,UR 0-3 (FEW) /LPF (0-3 (FEW))
[2024-03-14 20:36] LABS: BASOPHILS % (AUTO) 0.5 % (0.0-2.0); EOSINOPHILS % (AUTO) 0.4 % (0.0-4.0); HEMATOCRIT 29.6 % (36-48); HEMOGLOBIN 9.5 g/dL (12.0-16.0); LYMPHOCYTES # (AUTO) 1.2 K/uL (2.5-16.5); LYMPHOCYTES % (AUTO) 30.2 % (20.5-51.1); MEAN CORPUSCULAR HEMOGLOBIN 23 pg (27-31); MEAN CORPUSCULAR HGB CONC 32 g/dL (33-37); MEAN CORPUSCULAR VOLUME 70.5 fL (80-94); MONOCYTES # (AUTO) 0.9 K/uL (0.8-1.0); MONOCYTES % (AUTO) 21.8 % (1.7-9.3); NEUTROPHILS # (AUTO) 1.9 K/uL (1.8-7.7); NEUTROPHILS % (AUTO) 47.1 % (42.2-75.2); PLATELET COUNT (AUTO) 251 K/uL (140-450); RED CELL DISTRIBUTION WIDTH 21.2 % (11.6-13.7)
[2024-03-14] MEDS: MORPHINE SULFATE 4 MG/ML SYR IM ONE (20:59)
--- NOTE | 2024-03-14 21:00 | NUR ---
PT REMAINS AGITATED AND DEMANDING. LABS WERE DRAWN AND PT PROVIDED UA. ATTEMPT TO ESTABLISH IV WITHOUT SUCCESS. MORPHINE IM GIVEN.
[2024-03-14] MEDS ORDERED: ACET-8905 PO (21:23)
[2024-03-14] MEDS ORDERED: SULF-58 PO (21:23)
[2024-03-14 21:30] VITALS: BP 117/73; PULSE 97; RESP 18; TEMP 99.6; O2SAT 97
== END 2024-03-14 21:30 | disposition home or self-care (01) ==
LOC: MED 16:41
DX: N39.0 Urinary tract infection, site not specified (principal); F41.9 Anxiety disorder, unspecified; F32.9 Major depressive disorder, single episode, unspecified; Z90.49 Acquired absence of other specified parts of digestive tract; Z90.710 Acquired absence of both cervix and uterus; Z79.899 Other long term (current) drug therapy; Z88.6 Allergy status to analgesic agent; Z88.5 Allergy status to narcotic agent; Z88.8 Allergy status to other drugs, medicaments and biological substances
CPT/HCPCS: 36415; 81001; 81025; 85025; 87086; 96372; 99283; J2270

== ENCOUNTER 2024-04-10 15:22 | Emergency (ER) | payer OTHER ==
[~2024-04-10] VITALS: Ht 154.9 cm; Wt 78.9 kg
[~2024-04-10 15:22] MED LIST changes: +ACET-8905 PO
[2024-04-10 15:47] VITALS: BP 96/62; PULSE 112; RESP 20; TEMP 98.5; O2SAT 99
[2024-04-10 21:21] LABS: BILIRUBIN,URINE 1+ (NEGATIVE); BLOOD, URINE 3+ (NEGATIVE); LEUKOCYTE ESTERASE ,URINE 2+ (NEGATIVE); NITRITE, URINE POSITIVE (NEGATIVE); PH,URINE 6.5 (5.0-9.0); PROTEIN,URINE 2+ (NEGATIVE); UGLUCOSE NEGATIVE (NEGATIVE); UROBILINOGEN,URINE 0.2 EU/dL (0.2 - 1)
[2024-04-10 21:23] LABS: APPEARANCE,URINE SLIGHTLY CLOUDY (CLEAR); COLOR,URINE RED (YELLOW)
[2024-04-10 21:26] LABS: ICTOTEST POSITIVE (NEGATIVE)
[2024-04-10 21:27] LABS: BACTERIA,URINE 2+ /HPF (None Seen); MUCUS,URINE None Seen /LPF (None Seen); RBC,URINE 20-50 /HPF (0-5); SQUAMOUS EPITHELIAL CELL,UR 4-10 (MOD) /LPF (0-3 (FEW))
== END 2024-04-10 18:16 | disposition left against medical advice (07) ==
LOC: MED 15:22
DX: R10.9 Unspecified abdominal pain (principal); Z53.21 Procedure and treatment not carried out due to patient leaving prior to being seen by health care provider
CPT/HCPCS: 81001; 87086

== ENCOUNTER 2024-04-10 18:37 | Emergency (ER) | payer OTHER ==
[~2024-04-10] VITALS: Ht 154.9 cm; Wt 78.9 kg
[2024-04-10 18:56] VITALS: BP 96/62; PULSE 112; RESP 20; TEMP 98.5; O2SAT 99
[2024-04-10] MEDS: ONDANSETRON 4 MG ODT PO ONE (21:30)
== END 2024-04-10 20:55 | disposition left against medical advice (07) ==
LOC: MED 18:37
DX: R10.9 Unspecified abdominal pain (principal); R30.0 Dysuria; R31.9 Hematuria, unspecified; Z79.899 Other long term (current) drug therapy; Z88.6 Allergy status to analgesic agent; Z88.5 Allergy status to narcotic agent; Z88.8 Allergy status to other drugs, medicaments and biological substances
CPT/HCPCS: 99281; Q0162

== ENCOUNTER 2024-05-10 15:33 | Emergency (ER) | payer OTHER ==
[~2024-05-10] VITALS: Ht 154.9 cm; Wt 81.6 kg
[2024-05-10 15:37] VITALS: BP 155/112; PULSE 101; RESP 20; TEMP 97.9; O2SAT 99
[2024-05-10 16:11] VITALS: BP 155/112; PULSE 101; RESP 20; TEMP 97.9; O2SAT 99
[2024-05-10] MEDS: MORPHINE SULFATE 4 MG/ML SYR IM ONE (16:30)
[2024-05-10 16:35] LABS: APPEARANCE,URINE CLOUDY (CLEAR); BILIRUBIN,URINE NEGATIVE (NEGATIVE); BLOOD, URINE 3+ (NEGATIVE); COLOR,URINE AMBER (YELLOW); LEUKOCYTE ESTERASE ,URINE 2+ (NEGATIVE); NITRITE, URINE POSITIVE (NEGATIVE); PROTEIN,URINE TRACE (NEGATIVE); UGLUCOSE NEGATIVE (NEGATIVE); UROBILINOGEN,URINE 0.2 EU/dL (0.2 - 1)
[2024-05-10 16:38] LABS: BACTERIA,URINE 10-30 (MOD) /HPF (None Seen); MUCUS,URINE 1+ /LPF (None Seen); SQUAMOUS EPITHELIAL CELL,UR 4-10 (MOD) /LPF (0-3 (FEW))
[2024-05-10 16:43] LABS: AMPHETAMINE, URINE NEGATIVE ng/ml (NEG <=1000); BARBITURATE, URINE NEGATIVE ng/ml (NEG <=200); CANNABINOID, URINE NEGATIVE ng/mL (NEG <=50); COCAINE, URINE NEGATIVE ng/mL (NEG <=300); PHENCYCLIDINE SCREEN,URINE NEGATIVE ng/mL (NEG <=25)
[2024-05-10 16:52] LABS: BENZODIAZEPINE, URINE POSITIVE ng/mL (NEG <=200); OPIATE, URINE POSITIVE ng/mL (NEG <=2000)
== END 2024-05-10 16:53 | disposition home or self-care (01) ==
LOC: MED 15:33
DX: R10.32 Left lower quadrant pain (principal); R30.0 Dysuria; R11.2 Nausea with vomiting, unspecified; F41.9 Anxiety disorder, unspecified; R19.7 Diarrhea, unspecified; K59.00 Constipation, unspecified; Z90.49 Acquired absence of other specified parts of digestive tract; Z90.710 Acquired absence of both cervix and uterus; Z79.899 Other long term (current) drug therapy; Z88.6 Allergy status to analgesic agent; Z88.5 Allergy status to narcotic agent; Z88.8 Allergy status to other drugs, medicaments and biological substances
CPT/HCPCS: 80305; 81001; 81025; 87086; 96372; 99283; J2270